=== PATIENT | male | born 1955 | race Hispanic/Latino ===

== ENCOUNTER 2020-05-07 20:21 | Inpatient (IN) | payer MEDICARE, OTHER ==
[~2020-05-07] VITALS: Ht 167.6 cm; Wt 100.8 kg
--- NOTE | 2020-05-07 20:32 | Emergency Department Note ---
History of Present Illnes History of Present Illness Chief Complaint: COVID PUI History of Present Illness This is a 64 year old male 8 days of cough fevers and myalgias . Seen at bedside in mild respiratory distress Arrival Mode: Car Onset (how long ago): day(s) (8) Radiation: Reports non-radiation Severity: moderate Onset quality: gradual Duration (how long): day(s) (8) Timing of current episode: constant Progression: worsening Chronicity: new Context: Reports recent illness Relieving factors: none Exacerbating factors: none Associated symptoms: Reports denies other symptoms Treatments prior to arrival: none Previous service: medications given, tests performed Past Medical/Family History Physician Review I have reviewed the patient's past medical and family history. Any updates have been documented here. Past Medical History Recent Fever: Yes Clinical Suspicion of Infectio: Yes New/Unexplained Change in Ment: No Past Medical History: None Past Surgical History: None Social History Smoking Cessation: Never Smoker Alcohol Use: None Any Illegal Drug Use: No Review of Systems Review of Systems Constitutional: Reports fever, Reports malaise, Reports weakness EENTM: Reports no symptoms Cardiovascular: Reports no symptoms Respiratory: Reports cough Gastrointestinal: Reports no symptoms Genitourinary: Reports no symptoms Musculoskeletal: Reports no symptoms Integumentary: Reports no symptoms Neurological: Reports no symptoms Psychological: Reports no symptoms Endocrine: Reports no symptoms Hematological/Lymphatic: Reports no symptoms Physical Exam Related Data Allergies: Coded Allergies: iodine (Verified Allergy, Severe, 05/07/20) Vital signs reviewed: Yes Physical Exam CONSTITUTIONAL Constitutional: Present obese, Present ill appearing HENT HENT: Present normocephalic, Present atraumatic, Present oropharynx clear/moist, Present nose normal HENT L/R: Present left ext ear normal, Present right ext ear normal EYES Eyes: Reports PERRL, Reports conjunctivae normal NECK Neck: Present ROM normal PULMONARY Pulmonary: Present effort normal, Present breath sounds normal CARDIOVASCULAR Cardiovascular: Present regular rhythm, Present heart sounds normal, Present capillary refill normal, Present normal rate GASTROINTESTINAL Abdominal: Present soft, Present nontender, Present bowel sounds normal GENITOURINARY Genitourinary: Present exam deferred SKIN Skin: Present warm, Present dry MUSCULOSKELETAL Musculoskeletal: Present ROM normal NEUROLOGICAL Neurological: Present alert, Present oriented x 3, Present no gross motor or sensory deficits PSYCHOLOGICAL Psychological: Present mood/affect normal, Present judgement normal Results Laboratory Lab results reviewed: Yes Laboratory comments Laboratory Tests Test 05/08/20 00:20 05/07/20 21:18 White Blood Count 6.14 x10e3/uL (4.8-10.8) Red Blood Count 4.32 x10e6/uL (4.3-5.7) Hemoglobin 12.6 g/dL (14.0-18.0) Hematocrit 36.6 % (38.2-49.6) Mean Corpuscular Volume 84.7 fL (81-99) Mean Corpuscular Hemoglobin 29.2 pg (28-32) Mean Corpuscular Hemoglobin Concent 34.4 g/dL (31-35) Red Cell Distribution Width 14.0 % (11.7-14.4) Platelet Count 139 x10e3/uL (140-360) Neutrophils (%) (Auto) 77.6 % (38.7-80.0) Lymphocytes (%) (Auto) 16.0 % (18.0-39.1) Monocytes (%) (Auto) 5.2 % (4.4-11.3) Eosinophils (%) (Auto) 0.0 % (0.0-6.0) Basophils (%) (Auto) 0.2 % (0.0-1.0) Neutrophils # (Auto) 4.8 (2.1-6.9) Lymphocytes # (Auto) 1.0 (1.0-3.2) Monocytes # (Auto) 0.3 (0.2-0.8) Eosinophils # (Auto) 0.0 (0.0-0.4) Basophils # (Auto) 0.0 (0.0-0.1) Absolute Immature Granulocyte (auto 0.06 x10e3/uL (0-0.1) Sodium Level 133 mmol/L (136-145) Potassium Level 3.8 mmol/L (3.5-5.1) Chloride Level 99 mmol/L (98-107) Carbon Dioxide Level 24 mmol/L (22-29) Anion Gap 13.8 mmol/L (8-16) Blood Urea Nitrogen 15 mg/dL (7-26) Creatinine 1.17 mg/dL (0.72-1.25) Estimat Glomerular Filtration Rate > 60 ML/MIN (60-) BUN/Creatinine Ratio 13 (6-25) Glucose Level 104 mg/dL (74-118) Calcium Level 8.5 mg/dL (8.4-10.2) Total Bilirubin 0.5 mg/dL (0.2-1.2) Aspartate Amino Transf (AST/SGOT) 56 IU/L (5-34) Alanine Aminotransferase (ALT/SGPT) 51 IU/L (0-55) Alkaline Phosphatase 60 IU/L (40-150) Total Protein 7.2 g/dL (6.5-8.1) Albumin 2.9 g/dL (3.5-5.0) Globulin 4.3 g/dL (2.3-3.5) Albumin/Globulin Ratio 0.7 (0.8-2.0) Imaging Imaging results reviewed: Yes Impressions [place] [address] Patient Name: RUBIA COE MR #: [id number] : 1955 Age/Sex: 64/M Req #: [id number] Adm Physician: DON ROLLE MD Ordered by: LAKISHA SULLIVAN DO Report #: [id number] Location: [facility] Room/Bed: [place] [address] Procedure: [id number] DX/CHEST SINGLE (PORTABLE) Exam Date: 05/07/20 Exam Time: 5 REPORT STATUS: Signed EXAMINATION: CHEST SINGLE (PORTABLE) INDICATION: ^ERMD ORDER COMPARISON: None FINDINGS: TUBES and LINES: None. LUNGS: Patchy and hazy right infrahilar opacity. Strandy opacities in the mid lower left lung. Shallow inspiration. PLEURA: No pleural effusion or pneumothorax. HEART AND MEDIASTINUM: The cardiomediastinal silhouette is unremarkable. BONES AND SOFT TISSUES: No acute osseous lesion. Soft tissues are unremarkable. UPPER ABDOMEN: No free air under the diaphragm. IMPRESSION: Shallow inspiration and portable technique limited exam. Patchy and hazy bibasilar opacities could represent atelectasis, although early pneumonia/viral pneumonia could be considered in the appropriate clinical context. A lateral view could be helpful to assess lung bases. Signed by: Aquilino Pereira MD on 05/07/2020 11:58 PM Dictated By: AQUILINO PEREIRA MD 57 Transcribed By: GILBERT on 05/07/202357 COPY TO: LAKISHA SULLIVAN DO~ Critical Care Time Total Critical Care Time (min): 31 Critcal care necessary due to: respiratory failure Critcal care time spent by me: evaluation patient response to tx, examination of patient, obtaining hx from patient/surrogate, order/perform tx or interventions, order/review laboratory studies, order/review radiographic studies, pulse oximetry, re-evaluation of patient condition Assessment & Plan Medical Decision Making MDM 64 yom presents with dyspea and hypoxia. Mild Respiratory distress upon arrival. Diff Dx : PE, PTX, CHF, Sepsis, COVID-19 URI infection, ACS, COPDD, ARDS, airway obstruction, Lung CA. Patient highly critical. Plan to admit for continuous pulse oximetry monitoring Reassessment Reassessment time: 22:01 Reassessment patient responding well to supplemental oxygen Assessment & Plan Final Impression: (1) Respiratory tract infection due to 2019-nCoV (2) Hypoxia Depart Disposition: ADMITTED Home Meds Reported Medications Cholecalciferol (Vitamin D3) (Vitamin D3) 50 Mcg Tab.chew, 1 TAB PO DAILY 05/08/20 Azithromycin (AZITHROMYCIN) 500 Mg Tablet, 250 MG PO DAILY 05/08/20 Ascorbic Acid (VITAMIN C) 1,000 Mg Tablet, 1 TAB PO DAILY 05/08/20 Zinc Sulfate (ZINC SULFATE) 220 Mg Tablet, 50 MG PO DAILY, #30 CAP 05/08/20 [Promethazine DM] No Conflict Check, 6.25-15 MG PO Q6H PRN for NAUSEA 05/08/20 Hydrochlorothiazide (HYDROCHLOROTHIAZIDE) 25 Mg Tablet, 12.5 MG PO DAILY, #30 TAB 05/08/20 Olmesartan Medoxomil (BENICAR) 20 Mg Tablet, 20 MG PO DAILY, #30 TAB 05/08/20 LAKISHA SULLIVAN DO May 07, 2020:32
[2020-05-07] MEDS ORDERED: ACETAMINOPHEN 325 MG TAB ONE (21:23)
[2020-05-07] MEDS ORDERED: ACETAMINOPHEN 325 MG TAB PO NR (22:00)
[2020-05-08] VITALS (9 sets, daily range): BP systolic 129–137; BP diastolic 68–79
--- NOTE | 2020-05-08 00:02 | Diagnostic Imaging Report ---
EXAMINATION: CHEST SINGLE (PORTABLE) INDICATION: ^ERMD ORDER COMPARISON: None FINDINGS: TUBES and LINES: None. LUNGS: Patchy and hazy right infrahilar opacity. Strandy opacities in the mid lower left lung. Shallow inspiration. PLEURA: No pleural effusion or pneumothorax. HEART AND MEDIASTINUM: The cardiomediastinal silhouette is unremarkable. BONES AND SOFT TISSUES: No acute osseous lesion. Soft tissues are unremarkable. UPPER ABDOMEN: No free air under the diaphragm. IMPRESSION: Shallow inspiration and portable technique limited exam. Patchy and hazy bibasilar opacities could represent atelectasis, although early pneumonia/viral pneumonia could be considered in the appropriate clinical context. A lateral view could be helpful to assess lung bases. Signed by: Shen Friend MD on 05/07/2020 11:58 PM
--- NOTE | 2020-05-08 00:15 | NUR ---
Patient arrived to the COVID unit and assigned to room 176 from ED via wheelchair as a new admit patient. Pt is alert and oriented x3. Per report received from Ashwin Auguste (ER nurse), pt presented classic signs of COVID 19 although swab test result still pending at this time. Pt on 3L NC and O2 sat 100%. Pt denies pain or any discomfort. Pt ambulatory in room prn. Pt v/s stable and pt is afebrile (T = 98.4 F). Call casper within reach. Will monitor closely .
[2020-05-08 00:49] LABS: BASOPHILS % 0.2 % (0.0-1.0); HEMATOCRIT 36.6 % (38.2-49.6); HEMOGLOBIN 12.6 g/dL (14.0-18.0); MEAN CORPUSCULAR HEMOGLOBIN 29.2 pg (28-32); MEAN CORPUSCULAR HGB CONC 34.4 g/dL (31-35); MEAN CORPUSCULAR VOLUME 84.7 fL (81-99); MONOCYTES # (AUTO) 0.3 (0.2-0.8); MONOCYTES % 5.2 % (4.4-11.3); NEUTROPHILS # (AUTO) 4.8 (2.1-6.9); NEUTROPHILS % 77.6 % (38.7-80.0); PLATELET COUNT 139 x10e3/uL (140-360); RED BLOOD COUNT 4.32 x10e6/uL (4.3-5.7)
[2020-05-08 01:00] LABS: ALANINE AMINOTRANSFERASE 51 IU/L (0-55); ALBUMIN 2.9 g/dL (3.5-5.0); ALBUMIN/GLOBULIN RATIO 0.7 (0.8-2.0); ALKALINE PHOSPHATASE 60 IU/L (40-150); ANION GAP 13.8 mmol/L (8-16); BLOOD UREA NITROGEN 15 mg/dL (7-26); BUN/CREATININE RATIO 13 (6-25); CALCIUM 8.5 mg/dL (8.4-10.2); CARBON DIOXIDE 24 mmol/L (22-29); CHLORIDE 99 mmol/L (98-107); CREATININE, SERUM 1.17 mg/dL (0.72-1.25); EST GLOMERULAR FILTRATION RATE > 60 ML/MIN (60-); GLUCOSE 104 mg/dL (74-118); POTASSIUM 3.8 mmol/L (3.5-5.1); SODIUM 133 mmol/L (136-145)
[2020-05-08] MEDS ORDERED: VITAMIN D350 MCG PO (01:48)
[2020-05-08] MEDS ORDERED: BENICAR20 MG PO (01:48)
[2020-05-08] MEDS ORDERED: VITAMIN C1000 MG PO (01:48)
[2020-05-08] MEDS ORDERED: PROMETHAZINE DM PO (01:48)
[2020-05-08] MEDS ORDERED: HYDROCHLOROTHIA25 MG PO (01:48)
[2020-05-08] MEDS ORDERED: ZINC SULFATE220 MG PO (01:48)
[2020-05-08] MEDS ORDERED: AZITHROMYCIN500 MG PO (01:48)
[2020-05-08 05:54] LABS: HEMATOCRIT 38.5 % (38.2-49.6); HEMOGLOBIN 12.9 g/dL (14.0-18.0); LYMPHOCYTES # (AUTO) 0.9 (1.0-3.2); LYMPHOCYTES % 16.9 % (18.0-39.1); MEAN CORPUSCULAR HEMOGLOBIN 28.9 pg (28-32); MEAN CORPUSCULAR HGB CONC 33.5 g/dL (31-35); MEAN CORPUSCULAR VOLUME 86.1 fL (81-99); MONOCYTES # (AUTO) 0.3 (0.2-0.8); MONOCYTES % 5.2 % (4.4-11.3); NEUTROPHILS # (AUTO) 3.9 (2.1-6.9); NEUTROPHILS % 76.9 % (38.7-80.0); PLATELET COUNT 145 x10e3/uL (140-360); RED BLOOD COUNT 4.47 x10e6/uL (4.3-5.7); RED CELL DISTRIBUTION WIDTH 14.4 % (11.7-14.4)
[2020-05-08 06:17] LABS: ALANINE AMINOTRANSFERASE 50 IU/L (0-55); ALBUMIN 2.9 g/dL (3.5-5.0); ALBUMIN/GLOBULIN RATIO 0.6 (0.8-2.0); ALKALINE PHOSPHATASE 59 IU/L (40-150); ANION GAP 14.1 mmol/L (8-16); BLOOD UREA NITROGEN 15 mg/dL (7-26); BUN/CREATININE RATIO 14 (6-25); CALCIUM 8.6 mg/dL (8.4-10.2); CARBON DIOXIDE 26 mmol/L (22-29); CHLORIDE 98 mmol/L (98-107); EST GLOMERULAR FILTRATION RATE > 60 ML/MIN (60-); GLUCOSE 98 mg/dL (74-118); POTASSIUM 4.1 mmol/L (3.5-5.1); SODIUM 134 mmol/L (136-145)
--- NOTE | 2020-05-08 06:29 | NUR ---
Spoke with answering service for Dr. Allen to notify of new consult order (re: COVID 19 infection).
--- NOTE | 2020-05-08 06:43 | NUR ---
Spoke with answering service for Dr. Garcia to notify of new consult order (re: Hypoxia, PUI).
[2020-05-08] MEDS ORDERED: DOCUSATE SODIUM 100 MG CAP PO PRN (07:00)
[2020-05-08] MEDS ORDERED: ONDANSETRON HCL INJ 2MG/ML 2ML 2 MG/ML VIAL IV PRN (07:00)
--- NOTE | 2020-05-08 07:04 | NUR ---
H&P cc: sob HP{I: 64yoM, PCP , developed sob and cough. No dizziness/POP/vision changes. PMH: obesit, HTN PSHx: unknown Allergies; see emr Fh/SH; no illicits; no cigs meds; see MAR ROS: no f/c/s/N/V/D/POP/cp/skin rash/confusion/vision changes v/s; revd PE tired appearing anicteric ns1s2 reduced bs soft nt nd no e/t skin dry flat affect labs/meds revd A/P: 64yoM Multifocal PNA- azithromycin/ceftriaxone/loratadine/ Acute resp failure- decadron; O2; check COVID 19 FEver- iv abx Transaminitis- f/u Obesity - check hab1c/lipids BMI 33.2- as above Prop; lovenox; pepcid dispo: Messi Gotti MD, PhD.
--- NOTE | 2020-05-08 08:18 | NUR ---
Patient up in bed eating breakfast, on O2 3L NC, on Tele, No s/s of any distress noted, call light in reach, DR Gotti had rounds
[2020-05-08 08:22] LABS: CHOL/HDL RATIO 6.5 (3.9-4.7)
[2020-05-08] MEDS ORDERED: SODIUM CHLORIDE 0.9% 250ML 250 ML ONE (08:38)
[2020-05-08] MEDS: ASCORBIC ACID 500 MG TAB PO SCH (09:05)
[2020-05-08] MEDS: CEFTRIAXONE SOD 1 GM/NS 50 ML 50 ML IV SCH (09:05)
[2020-05-08] MEDS: DEXAMETHASONE SOD PHOS INJ 4 MG/ML VIAL IV SCH (09:05)
[2020-05-08] MEDS: LORATADINE 10 MG TAB PO SCH (09:05)
[2020-05-08] MEDS: ZINC SULFATE 220 MG CAP PO SCH (09:05)
[2020-05-08] MEDS: HYDROCHLOROTHIAZIDE 25 MG TAB PO SCH (09:05)
[2020-05-08] MEDS: AZITHROMYCIN 500MG/NS 250 ML 250 ML IV SCH (09:05)
[2020-05-08] MEDS: BENZONATATE 100 MG CAP PO SCH ×3 (09:05→21:15)
[2020-05-08] MEDS: FAMOTIDINE 20 MG TAB PO SCH ×2 (09:05→17:09)
--- NOTE | 2020-05-08 11:53 | Consultation ---
DATE OF CONSULTATION: Pulmonary Consultation REASON FOR CONSULT: COVID pneumonia. HISTORY OF PRESENT ILLNESS: Mr. Raines is a 64-year-old male, who presented to the emergency room with complaints of shortness of breath. The patient reports that he was having mild cough and respiratory distress for 7 to 8 days associated with arthralgias and myalgias. He denies any chest pain, nausea, or vomiting. REVIEW OF SYSTEMS: GENERAL: Was having chills and fever. HEAD: Denies head trauma. ENT: Denies any earache. CVS: Denies any chest pain. The rest of the review of systems are negative except as in HPI. PAST MEDICAL HISTORY: Hypertension. PAST SURGICAL HISTORY: None. FAMILY AND SOCIAL HISTORY: Does not smoke. Does not drink. PHYSICAL EXAMINATION: VITAL SIGNS: Temperature 98.4, pulse of 78, blood pressure 129/79, respiratory rate of 18, and O2 saturation 100% on 3 L. HEENT: Head is atraumatic and normocephalic. NECK: Supple. CHEST: Clear to auscultation. Reduced air entry on the bases. HEART: S1 and S2 audible. ABDOMEN: Soft. EXTREMITIES: No pedal edema. NEUROLOGIC: Awake and alert. LABORATORY DATA: Reviewed. Chest x-ray is showing poor effort, but some infiltrate on the bases. ASSESSMENT/PLAN: COVID-19 pneumonia with shortness of breath, mild hypoxia. PLAN: Agree with Decadron, azithromycin, Rocephin, Tessalon Perles for cough. We will closely follow the patient. Thank you for this consult. MD HOMERO Paz/JASMINA /[id number]
--- NOTE | 2020-05-08 12:50 | NUR ---
Dr Allen had rounds, patient tolerated Lunch, no distress noted, he ambulated to restroom
[2020-05-08] MEDS ORDERED: ENOXAPARIN SOD INJ 40 MG/0.4 ML SYR SC SCH (17:00)
[2020-05-08] MEDS ORDERED: REMDESIVIR 200MG/NS 100ML 200 MG IV ONE (17:00)
--- NOTE | 2020-05-08 17:15 | NUR ---
Explained and Handout give regarding Remdesivir IV, Patient signed information paper
--- NOTE | 2020-05-08 17:19 | Consultation ---
DATE OF CONSULTATION: HISTORY OF PRESENT ILLNESS: Mr. Raines is here for shortness of breath and cough. The patient is a 64-year-old male, who comes in to the emergency room with shortness of breath and cough. He has been sick for 9 days. The patient has fever and chills and cough and shortness of breath, getting progressively worse with on oxygen. He is currently on 4 L. PAST MEDICAL HISTORY: Comprehensive past medical history is unremarkable. PAST SURGICAL HISTORY: Denies. ALLERGIES: NKA. SOCIAL HISTORY: No smoking, drug abuse, or alcohol abuse. PHYSICAL EXAMINATION: GENERAL: He is currently alert, oriented. VITALS: Stable, currently afebrile. HEENT: Not icteric. NECK: Supple. CHEST: Crackles bilateral. HEART: S1 and S2. ABDOMEN: Soft. IMPRESSION: COVID-19, respiratory failure, we will put him on remdesivir. Discussed with the patient this is still an investigational drug approved by them on emergency basis. He can stop it at any time. The fact sheet was discussed with the patient and he agreed with it. I am going to start him on 20 mg IV piggyback now and 1 mg IV piggyback for 5 days. Oxygen as needed. Dexamethasone for 10 days. We will plan. MD AQUILES Olmos/JASMINA /[id number]
--- NOTE | 2020-05-08 19:20 | NUR ---
Patient received lying in bed. AAO x 3. Patient had no complaints of pain. Respirations even and non-labored on 5 L NC. Fall precautions implemented. Patient instructed to call for assistance when needed. Call light within reach.
[2020-05-08] MEDS ORDERED: ZOLPIDEM TARTRATE 5 MG TAB PO PRN (21:00)
--- NOTE | 2020-05-08 21:15 | NUR ---
Patient's oxygen saturation recorded as 87% on 5 L NC. Respiratory therapist notified. Patient placed on 10L High Flow NC . Will continue to monitor.
[2020-05-09] VITALS (8 sets, daily range): BP systolic 119–150; BP diastolic 64–78
--- NOTE | 2020-05-09 06:15 | NUR ---
Patient's oxygen saturation dropped from 91% to 86%. Oxygen level increased to 15 on High Flow NC. Currently O2 Sat is 93%.
--- NOTE | 2020-05-09 06:25 | NUR ---
IM- progress note O/N see below ROS: no f/c/s/N/V/D/POP/cp/skin rash/confusion/vision changes v/s; revd PE tired appearing anicteric ns1s2 reduced bs soft nt nd no e/t skin dry flat affect labs/meds revd A/P: 64yoM Multifocal PNA- azithromycin/ceftriaxone/loratadine/ Acute resp failure- decadron; O2; check COVID 19 COVID19 infection and PNA FEver- iv abx Transaminitis- f/u Obesity - check hab1c/lipids BMI 33.2- as above Prop; lovenox; pepcid dispo: 8-6 Hba1c 5.3. COVID19 positive PNA; cont remdesivir and decadron and abx. Messi Gotti MD, PhD.
--- NOTE | 2020-05-09 07:00 | NUR ---
Patient resting comfortably. Shift report given to oncoming nurse.
[2020-05-09] MEDS: FAMOTIDINE 20 MG TAB PO SCH ×2 (08:58→16:22)
[2020-05-09] MEDS: LORATADINE 10 MG TAB PO SCH (08:59)
[2020-05-09] MEDS: ASCORBIC ACID 500 MG TAB PO SCH (08:59)
[2020-05-09] MEDS: CEFTRIAXONE SOD 1 GM/NS 50 ML 50 ML IV SCH (08:59)
[2020-05-09] MEDS: BENZONATATE 100 MG CAP PO SCH ×3 (08:59→20:43)
[2020-05-09] MEDS: HYDROCHLOROTHIAZIDE 25 MG TAB PO SCH (08:59)
[2020-05-09] MEDS: ZINC SULFATE 220 MG CAP PO SCH (08:59)
[2020-05-09] MEDS: DEXAMETHASONE SOD PHOS INJ 4 MG/ML VIAL IV SCH (08:59)
[2020-05-09] MEDS: AZITHROMYCIN 500MG/NS 250 ML 250 ML IV SCH (09:41)
--- NOTE | 2020-05-09 12:16 | NUR ---
Patient up in bed, on O2 10L High Flow with O2 Sat @ 94%, No distress noted this time, DR Garcia had rounds
[2020-05-09] MEDS: ACETAMINOPHEN 325 MG TAB PO PRN (12:22)
--- NOTE | 2020-05-09 12:48 | Progress Note ---
DATE: SUBJECTIVE: The patient is now requiring 10 L of oxygen, saturating 90%. He is on azithromycin and Rocephin. Chest x-ray shows infiltrates. The patient is on Lovenox 40 mg subcutaneous daily and remdesivir has been started. Hopefully, he will improve. PHYSICAL EXAMINATION: VITAL SIGNS: Temperature 97.8, pulse of 62, and blood pressure 122/65. CHEST: Clear to auscultation bilaterally. HEART: S1 and S2 audible. ABDOMEN: Soft. LABORATORY DATA: Reviewed. Chemistry reviewed. ASSESSMENT/PLAN: Mr. Raines has a COVID-19 pneumonia with respiratory failure. Continue oxygen as tolerated. Continue the patient on Decadron, azithromycin, and Rocephin. Currently on Lovenox 40 mg subcutaneous daily. I will check D-dimer. We may need to go up on the Lovenox dose. We will repeat chest x-ray. MD HOMERO Paz/JASMINA /[id number]
[2020-05-09] MEDS: REMDESIVIR 100MG/NS 100ML 100 MG IV SCH (14:05)
[2020-05-09] MEDS: ENOXAPARIN SOD INJ 40 MG/0.4 ML SYR SC SCH ×2 (16:21→20:43)
--- NOTE | 2020-05-09 16:30 | Progress Note ---
DATE: SUBJECTIVE: Mr. Raines is feeling worse today. He became hypoxemic. He is currently on Rocephin, azithromycin, dexamethasone, Lovenox as well as remdesivir day #2 out of 5. The patient became hypoxemic on 10 L. PHYSICAL EXAMINATION: HEENT: Normocephalic. CHEST: Crackles. HEART: S1, S2. ABDOMEN: Soft. Bowel sounds present. EXTREMITIES: No edema. SKIN: No rash. IMPRESSION AND PLAN: COVID-19, respiratory failure. Continue as ordered. We will increase his Lovenox to q.12 hours. Continue supportive care, oxygen as needed, vitamin C and vitamin D and zinc supplement. Discussed with medical team. MD AQUILES Olmos/MODL /[id number]
--- NOTE | 2020-05-09 19:30 | NUR ---
Patient received lying in bed. No acute distress noted. Respirations even and non-labored. Patient's oxygen saturation recorded as 90% on 12L High Flow NC. Fall precautions implemented. Call light within reach.
--- NOTE | 2020-05-09 21:30 | NUR ---
Patient's oxygen saturation recorded as 88% on 12L High Flow NC. Increased to 15L. O2 Sat recorded as 91%. Will continue to monitor.
[2020-05-10] VITALS (11 sets, daily range): BP systolic 119–144; BP diastolic 62–78
--- NOTE | 2020-05-10 01:55 | NUR ---
Patient's oxygen saturation recorded as 87% on High Flow NC. Non-rebreather mask placed on patient at 15 L; O2 Sat recorded as 93%. Will continue to monitor.
--- NOTE | 2020-05-10 06:24 | NUR ---
IM- progress note O/N see below ROS: no f/c/s/N/V/D/POP/cp/skin rash/confusion/vision changes v/s; revd PE tired appearing anicteric ns1s2 reduced bs soft nt nd no e/t skin dry flat affect labs/meds revd A/P: 64yoM Multifocal PNA- azithromycin/ceftriaxone/loratadine/ Acute resp failure- decadron; O2; check COVID 19 COVID19 infection and PNA FEver- iv abx Transaminitis- f/u Obesity - check hab1c/lipids BMI 33.2- as above Prop; lovenox; pepcid dispo: 8-6 Hba1c 5.3. COVID19 positive PNA; cont remdesivir and decadron and abx. 8-7 cont supportive care; Increased O2 needs; on NRBM; called , left voicemail. Messi Gotti MD, PhD.
--- NOTE | 2020-05-10 06:58 | NUR ---
Shift report given to oncoming nurse.
[2020-05-10] MEDS: CEFTRIAXONE SOD 1 GM/NS 50 ML 50 ML IV SCH (09:04)
[2020-05-10] MEDS: ASCORBIC ACID 500 MG TAB PO SCH (09:04)
[2020-05-10] MEDS: FAMOTIDINE 20 MG TAB PO SCH ×2 (09:04→17:18)
[2020-05-10] MEDS: ZINC SULFATE 220 MG CAP PO SCH (09:04)
[2020-05-10] MEDS: ENOXAPARIN SOD INJ 40 MG/0.4 ML SYR SC SCH ×2 (09:04→21:26)
[2020-05-10] MEDS: HYDROCHLOROTHIAZIDE 25 MG TAB PO SCH (09:04)
[2020-05-10] MEDS: DEXAMETHASONE SOD PHOS INJ 4 MG/ML VIAL IV SCH (09:04)
[2020-05-10] MEDS: BENZONATATE 100 MG CAP PO SCH ×3 (09:04→21:26)
[2020-05-10] MEDS: LORATADINE 10 MG TAB PO SCH (09:04)
--- NOTE | 2020-05-10 09:30 | NUR ---
respiratory called to bedside for assessment. patient o2 88% on 15L hiflow and 15L nonrebreather. recommended patient lay in prone position. pt assisted to right side. saturation up to 94%. wctm
[2020-05-10] MEDS: AZITHROMYCIN 500MG/NS 250 ML 250 ML IV SCH (09:54)
--- NOTE | 2020-05-10 10:44 | NUR ---
pulm recommending AirVo for patient. will notify respiratory.
--- NOTE | 2020-05-10 10:59 | Progress Note ---
DATE: SUBJECTIVE: The patient's oxygen requirement is going up when he is progressively getting worse. His D-dimer has been 0.88, which was high. Lovenox dose was increased. He is on Decadron IV antibiotics and remdesivir. REVIEW OF SYSTEMS: GENERAL: Denies any fever or chills. HEAD: Denies any head trauma. ENT: Denies any earache. CHEST: No chest pain, shortness of breath. GI: Denies any nausea or vomiting. The rest of the review of systems are negative except as in HPI. LABORATORY DATA: Reviewed. ASSESSMENT/PLAN: Mr. Raines is a 64-year-old male with COVID-19 pneumonia, progressively getting worse with the oxygen requirement. I will start the patient on high-flow nasal cannula and closely observe. Respiratory status is precarious. MD HOMERO Paz/JASMINA /[id number]
--- NOTE | 2020-05-10 11:00 | NUR ---
PATIENT PLACED ON AIRVO. 02 SATURATION 95%.
--- NOTE | 2020-05-10 13:13 | NUR ---
UPON ASSESSMENT, PATIENT LOOKS UNCOMFORTABLE. STATES HE IS NOT ABLE TO TAKE DEEP BREATHS. O2- 88%, SWITCHED BACK TO HIGH FLOW NASAL CANNULA AND NONREBREATHER. EXPLAINED AGAIN TO TURN OVER ONTO BELLY OR SIDE WHICH HE DID. SATURATION TO 95%.
[2020-05-10] MEDS: REMDESIVIR 100MG/NS 100ML 100 MG IV SCH (14:15)
--- NOTE | 2020-05-10 16:24 | NUR ---
patient o2 92% on high flow and nonrebreather. dr. cade discussed with dr. grullon and want to transfer patient to ICU. orders entered. waiting for bed assignment at this time.
--- NOTE | 2020-05-10 18:20 | Progress Note ---
DATE: SUBJECTIVE: Johnnie Raines is short of breath. His oxygenation saturation maintained, but he is on higher oxygen demand. He has no complaints. PHYSICAL EXAMINATION: GENERAL: He is currently alert. VITALS: Stable, currently afebrile. HEENT: He is not icteric. NECK: Supple. CHEST: Crackles bilaterally. HEART: S1 and S2. ABDOMEN: Soft. EXTREMITIES: No edema. IMPRESSION: Respiratory failure, COVID-19. I am going to move this patient to ICU. Continue with antibiotic as ordered. Finish his remdesivir and Lovenox as ordered. We will follow. MD AQUILES Olmos/JASMINA /[id number]
[2020-05-11] VITALS (24 sets, daily range): BP systolic 82–158; BP diastolic 61–93
[2020-05-11] MEDS: FAMOTIDINE 20 MG TAB PO SCH ×2 (07:33→16:36)
[2020-05-11] MEDS: CEFTRIAXONE SOD 1 GM/NS 50 ML 50 ML IV SCH (08:17)
[2020-05-11] MEDS: BENZONATATE 100 MG CAP PO SCH ×3 (08:26→21:12)
[2020-05-11] MEDS: DEXAMETHASONE SOD PHOS INJ 4 MG/ML VIAL IV SCH (08:26)
[2020-05-11] MEDS: ASCORBIC ACID 500 MG TAB PO SCH (08:26)
[2020-05-11] MEDS: ZINC SULFATE 220 MG CAP PO SCH (08:26)
[2020-05-11] MEDS: LORATADINE 10 MG TAB PO SCH (08:27)
[2020-05-11] MEDS: HYDROCHLOROTHIAZIDE 25 MG TAB PO SCH (08:27)
[2020-05-11] MEDS: ENOXAPARIN SOD INJ 40 MG/0.4 ML SYR SC SCH ×2 (08:27→21:12)
[2020-05-11] MEDS: AZITHROMYCIN 500MG/NS 250 ML 250 ML IV SCH (08:49)
--- NOTE | 2020-05-11 14:23 | NUR ---
IM- progress note O/N see below ROS: no f/c/s/N/V/D/POP/cp/skin rash/confusion/vision changes v/s; revd PE tired appearing anicteric ns1s2 reduced bs soft nt nd no e/t skin dry flat affect labs/meds revd A/P: 64yoM Multifocal PNA- azithromycin/ceftriaxone/loratadine/ Acute resp failure- decadron; O2; check COVID 19 COVID19 infection and PNA FEver- iv abx Transaminitis- f/u Obesity - check hab1c/lipids BMI 33.2- as above Prop; lovenox; pepcid dispo: 8-6 Hba1c 5.3. COVID19 positive PNA; cont remdesivir and decadron and abx. 8-7 cont supportive care; Increased O2 needs; on NRBM; called , left voicemail. 8-8 cont supportive care; escalate as needed; remains on O2 support; not intubated; Called next of kin- left message again. Messi Gotti MD, PhD.
[2020-05-11] MEDS: REMDESIVIR 100MG/NS 100ML 100 MG IV SCH (15:29)
--- NOTE | 2020-05-11 16:25 | NUR ---
this infections is per his note The patient is intensive. Events noted chart reviewed Remains short of breath remains Johnnie Raines is short of breath. His oxygenation saturation maintained, but he is on higher oxygen demand. He has no complaints. PHYSICAL EXAMINATION: GENERAL: He is currently alert. On oxygen VITALS: Stable, currently afebrile. both are stable otherwise HEENT: He is not icteric. normocephalic NECK: Supple. no JVD CHEST: Crackles bilaterally. HEART: S1 and S2. ABDOMEN: Soft. also present extremities no edema EXTREMITIES: No edema. IMPRESSION: Respiratory failure, COVID-19. patient seems to be getting better discuss medical team Continue supportive care Continue anticoagulation First 10 days of Decadron I am going to move this patient to ICU. Continue with antibiotic as ordered. Finish his remdesivir and Lovenox as ordered. We will follow.
--- NOTE | 2020-05-11 20:46 | Progress Note ---
DATE: SUBJECTIVE: The patient has improved, still requiring high-flow nasal cannula along with nonrebreather. The patient is on remdesivir. PHYSICAL EXAMINATION: VITAL SIGNS: Temperature 97.7, pulse of 60, blood pressure 149/72. CHEST: Clear to auscultation. No wheezing. HEART: S1 and S2 audible. ABDOMEN: Soft. NEUROLOGIC: Awake and alert. LABORATORY DATA: Reviewed. ASSESSMENT AND PLAN: A 64-year-old male with coronavirus disease 2019 pneumonia and respiratory failure. The patient has improved, however, still requiring the nonrebreather and high-flow oxygen. Continue supportive care. MD HOMERO Paz/MODL /[id number]
[2020-05-12] VITALS (25 sets, daily range): BP systolic 119–164; BP diastolic 61–90
[2020-05-12 06:24] LABS: BASOPHILS % 0.1 % (0.0-1.0); HEMATOCRIT 38.6 % (38.2-49.6); HEMOGLOBIN 12.8 g/dL (14.0-18.0); LYMPHOCYTES # (AUTO) 0.8 (1.0-3.2); LYMPHOCYTES % 7.2 % (18.0-39.1); MEAN CORPUSCULAR HGB CONC 33.2 g/dL (31-35); MEAN CORPUSCULAR VOLUME 90.4 fL (81-99); MONOCYTES # (AUTO) 0.4 (0.2-0.8); NEUTROPHILS # (AUTO) 9.6 (2.1-6.9); NEUTROPHILS % 87.6 % (38.7-80.0); PLATELET COUNT 250 x10e3/uL (140-360); RED BLOOD COUNT 4.27 x10e6/uL (4.3-5.7); RED CELL DISTRIBUTION WIDTH 14.3 % (11.7-14.4)
[2020-05-12 06:42] LABS: ALANINE AMINOTRANSFERASE 46 IU/L (0-55); ALBUMIN 2.7 g/dL (3.5-5.0); ALBUMIN/GLOBULIN RATIO 0.7 (0.8-2.0); ALKALINE PHOSPHATASE 63 IU/L (40-150); ANION GAP 11.2 mmol/L (8-16); BLOOD UREA NITROGEN 33 mg/dL (7-26); BUN/CREATININE RATIO 32 (6-25); CALCIUM 8.6 mg/dL (8.4-10.2); CARBON DIOXIDE 28 mmol/L (22-29); CHLORIDE 104 mmol/L (98-107); CREATININE, SERUM 1.02 mg/dL (0.72-1.25); EST GLOMERULAR FILTRATION RATE > 60 ML/MIN (60-); GLUCOSE 99 mg/dL (74-118); POTASSIUM 4.2 mmol/L (3.5-5.1); SODIUM 139 mmol/L (136-145)
[2020-05-12] MEDS: ASCORBIC ACID 500 MG TAB PO SCH (08:29)
[2020-05-12] MEDS: ENOXAPARIN SOD INJ 40 MG/0.4 ML SYR SC SCH ×2 (08:29→20:41)
[2020-05-12] MEDS: ZINC SULFATE 220 MG CAP PO SCH (08:29)
[2020-05-12] MEDS: CEFTRIAXONE SOD 1 GM/NS 50 ML 50 ML IV SCH (08:29)
[2020-05-12] MEDS: HYDROCHLOROTHIAZIDE 25 MG TAB PO SCH (08:30)
[2020-05-12] MEDS: LORATADINE 10 MG TAB PO SCH (08:30)
[2020-05-12] MEDS: BENZONATATE 100 MG CAP PO SCH ×3 (08:30→20:41)
[2020-05-12] MEDS: FAMOTIDINE 20 MG TAB PO SCH ×2 (08:30→16:49)
[2020-05-12] MEDS: DEXAMETHASONE SOD PHOS INJ 4 MG/ML VIAL IV SCH (08:30)
[2020-05-12] MEDS: AZITHROMYCIN 500MG/NS 250 ML 250 ML IV SCH (09:10)
--- NOTE | 2020-05-12 09:27 | NUR ---
IM- progress note O/N see below ROS: no f/c/s/N/V/D/POP/cp/skin rash/confusion/vision changes v/s; revd PE tired appearing anicteric ns1s2 reduced bs soft nt nd no e/t skin dry flat affect labs/meds revd A/P: 64yoM Multifocal PNA- azithromycin/ceftriaxone/loratadine/ Acute resp failure- decadron; O2; check COVID 19 COVID19 infection and PNA Acute diarrhea- check C-diff and start flagyl FEver- iv abx Transaminitis- f/u Obesity - check hab1c/lipids BMI 33.2- as above Prop; lovenox; pepcid dispo: 8-6 Hba1c 5.3. COVID19 positive PNA; cont remdesivir and decadron and abx. 8-7 cont supportive care; Increased O2 needs; on NRBM; called , left voicemail. 8-8 cont supportive care; escalate as needed; remains on O2 support; not intubated; Called next of kin- left message again. 8-9 cont care; D/w son at [phone] ; remains stable on NRBM; Diarrhea- check C-diff; start flagyl; Messi Gotti MD, PhD.
--- NOTE | 2020-05-12 10:14 | NUR ---
Infectious disease progress note Patient Ms. intensive care unit on high oxygen Patient short of breath fatigue but otherwise doing okay review of system is unremarkable Medications reviewed the videos reviewed chart reviewed patient has diarrhea today laboratory reviewed Remains short of breath remains THE INTENSIVE CARE UNIT Johnnie Raines is short of breath. His oxygenation saturation maintained, but he is on higher oxygen demand. He has no complaints. PHYSICAL EXAMINATION: GENERAL: He is currently alert. On oxygen VITALS: Stable, currently afebrile. both are stable otherwise HEENT: He is not icteric. normocephalic NECK: Supple. no JVD CHEST: Crackles bilaterally. HEART: S1 and S2. ABDOMEN: Soft. also present extremities no edema EXTREMITIES: No edema. IMPRESSION: Respiratory failure, COVID-19. Diarrhea I thinks due to antibiotic was discontinued to think this is day #5 he also finished his redisivir patient seems to be getting better discuss medical team continue as ordered
[2020-05-12] MEDS ORDERED: METRONIDAZOLE 500MG/NS 100ML 100 ML IV SCH (13:00)
[2020-05-12] MEDS: REMDESIVIR 100MG/NS 100ML 100 MG IV SCH (14:08)
[2020-05-12] MEDS ORDERED: CHOLESTYRAMINE 4 GM PACKET PO PRN (16:30)
--- NOTE | 2020-05-12 17:00 | NUR ---
Patient having multiple loose stools. Dr. Gotti informed and ordered c diff culture and flagyl. Dr. Allen aware of diarrhea and d/c all antibiotics and prn pepto bismol and questran ordered.
[2020-05-12] MEDS: BISMUTH SUBSALICYLATE 262 MG/15 ML 8OZ BTL PO PRN (17:13)
[2020-05-13] VITALS (24 sets, daily range): BP systolic 111–158; BP diastolic 59–91
[2020-05-13] MEDS: GUAIFENESIN/DEXTROMETHORPHAN LIQD 5 ML UDC NG PRN ×2 (04:44→23:15)
--- NOTE | 2020-05-13 06:59 | NUR ---
IM- progress note O/N see below ROS: no f/c/s/N/V/D/POP/cp/skin rash/confusion/vision changes v/s; revd PE tired appearing anicteric ns1s2 reduced bs soft nt nd no e/t skin dry flat affect labs/meds revd A/P: 64yoM Multifocal PNA- azithromycin/ceftriaxone/loratadine/ Acute resp failure- decadron; O2; check COVID 19 COVID19 infection and PNA Acute diarrhea- check C-diff and start flagyl FEver- iv abx Transaminitis- f/u Obesity - check hab1c/lipids BMI 33.2- as above Prop; lovenox; pepcid dispo: 8-6 Hba1c 5.3. COVID19 positive PNA; cont remdesivir and decadron and abx. 8-7 cont supportive care; Increased O2 needs; on NRBM; called , left voicemail. 8-8 cont supportive care; escalate as needed; remains on O2 support; not intubated; Called next of kin- left message again. 8-9 cont care; D/w son at [phone] ; remains stable on NRBM; Diarrhea- check C-diff; start flagyl; 8-10 supportive care; lung infiltrate worse? cont supportive care with NRBM. Messi Gotti MD, PhD.
[2020-05-13] MEDS: ENOXAPARIN SOD INJ 40 MG/0.4 ML SYR SC SCH ×2 (08:27→21:17)
[2020-05-13] MEDS: LORATADINE 10 MG TAB PO SCH (08:27)
[2020-05-13] MEDS: ZINC SULFATE 220 MG CAP PO SCH (08:27)
[2020-05-13] MEDS: BENZONATATE 100 MG CAP PO SCH ×3 (08:27→21:16)
[2020-05-13] MEDS: DEXAMETHASONE SOD PHOS INJ 4 MG/ML VIAL IV SCH (08:27)
[2020-05-13] MEDS: HYDROCHLOROTHIAZIDE 25 MG TAB PO SCH (08:27)
[2020-05-13] MEDS: ASCORBIC ACID 500 MG TAB PO SCH (08:27)
[2020-05-13] MEDS: FAMOTIDINE 20 MG TAB PO SCH ×2 (08:27→15:51)
--- NOTE | 2020-05-13 08:58 | Diagnostic Imaging Report ---
EXAMINATION: CHEST SINGLE (PORTABLE) INDICATION: Viral pneumonia COMPARISON: Chest radiograph 05/07/2020 FINDINGS: LINES/TUBES:EKG leads overlie the chest. LUNGS:The lungs are moderately inflated. Worsening bilateral multifocal airspace opacities right greater than left. PLEURA:No pleural effusion or pneumothorax. MEDIASTINUM:The cardiomediastinal silhouette appears unchanged in size and shape. BONES/SOFT TISSUES:No acute osseous injury. ABDOMEN:No free air under the diaphragm. IMPRESSION: Worsening right greater than left multifocal airspace opacities consistent with known history of viral pneumonia. Signed by: Jericho Martinez MD on 05/13/2020 8:54 AM
--- NOTE | 2020-05-13 12:24 | NUR ---
infectious disease grades note Patient status post antibiotic Still shortness of breath diarrhea is better still low fever Physical examination currently alert oriented his vitals stable currently HEENT did not protect neck supple chest crackles heart S1-S2 abdomen soft both are present extremities no edema Covid 19 Respirated failure Status post treatment with antibiotic Continue with supportive care for now No fever today we will reassess
--- NOTE | 2020-05-13 17:40 | NUR ---
Nutrition Screen Note RD Recommendation for Physician: -Continue cardiac diet Plan of Care: RD following, monitoring for tolerance and adequacy Nutrition reason for involvement: Length of stay Primary Diagnose(s): COVID19, pneumonia, and hypoxia PMH: HTN Ht: 66 in Wt:205 lb BMI: 33.1 kg/m2 IBW:[address] Assessment: (05/13/20) Chart reviewed. Labs and meds reviewed. Pt is a 64 year old male admitted with COVID19, pneumonia, and hypoxia. Unable to enter room due to isolation precautions. No reports of weight loss per chart. It is recorded that pt consumed 75% of meals yesterday and 25-50% of breakfast and lunch today. If pt consumes <50% of meals, offer Ensure compact. Will continue to monitor. Current Diet: cardiac Malnutrition Evaluation (05/13/20) Unable to assess due to isolation precautions Diet Education Needs Assessment: RD is available for diet education as needed Nutrition Care Level: low Signed: Gali Matias, RD, LD
--- NOTE | 2020-05-13 17:54 | NUR ---
Patient proned at this time per MD order, tolerating well, Sats noted to be 94%
--- NOTE | 2020-05-13 18:20 | NUR ---
Patient laying on right side at this time, states, "Laying on my stomach hurts my lower back." Sats noted to be 94%
[2020-05-13] MEDS ORDERED: ZOLPIDEM TARTRATE 5 MG TAB PO SCH (21:00)
[2020-05-14] VITALS (25 sets, daily range): BP systolic 106–144; BP diastolic 64–89
[2020-05-14 05:02] LABS: BASOPHILS % 0.2 % (0.0-1.0); EOSINOPHILS % 0.2 % (0.0-6.0); HEMATOCRIT 46.6 % (38.2-49.6); HEMOGLOBIN 15.4 g/dL (14.0-18.0); LYMPHOCYTES # (AUTO) 0.6 (1.0-3.2); LYMPHOCYTES % 5.4 % (18.0-39.1); MEAN CORPUSCULAR HEMOGLOBIN 28.9 pg (28-32); MEAN CORPUSCULAR VOLUME 87.6 fL (81-99); MONOCYTES # (AUTO) 0.3 (0.2-0.8); MONOCYTES % 2.9 % (4.4-11.3); NEUTROPHILS # (AUTO) 10.3 (2.1-6.9); NEUTROPHILS % 89.6 % (38.7-80.0); PLATELET COUNT 269 x10e3/uL (140-360); RED BLOOD COUNT 5.32 x10e6/uL (4.3-5.7)
[2020-05-14 05:19] LABS: ALANINE AMINOTRANSFERASE 34 IU/L (0-55); ALBUMIN 2.9 g/dL (3.5-5.0); ALBUMIN/GLOBULIN RATIO 0.6 (0.8-2.0); ALKALINE PHOSPHATASE 73 IU/L (40-150); ANION GAP 14.3 mmol/L (8-16); BLOOD UREA NITROGEN 30 mg/dL (7-26); BUN/CREATININE RATIO 26 (6-25); CALCIUM 9.4 mg/dL (8.4-10.2); CARBON DIOXIDE 25 mmol/L (22-29); CHLORIDE 101 mmol/L (98-107); CREATININE, SERUM 1.15 mg/dL (0.72-1.25); EST GLOMERULAR FILTRATION RATE > 60 ML/MIN (60-); GLUCOSE 97 mg/dL (74-118); POTASSIUM 4.3 mmol/L (3.5-5.1); SODIUM 136 mmol/L (136-145)
--- NOTE | 2020-05-14 06:42 | NUR ---
IM- progress note O/N see below ROS: no f/c/s/N/V/D/POP/cp/skin rash/confusion/vision changes v/s; revd PE tired appearing anicteric ns1s2 reduced bs soft nt nd no e/t skin dry flat affect labs/meds revd A/P: 64yoM Multifocal PNA- azithromycin/ceftriaxone/loratadine/ Acute resp failure- decadron; O2; check COVID 19 COVID19 infection and PNA Acute diarrhea- check C-diff and start flagyl FEver- iv abx Transaminitis- f/u Obesity - check hab1c/lipids BMI 33.2- as above Prop; lovenox; pepcid dispo: 8-6 Hba1c 5.3. COVID19 positive PNA; cont remdesivir and decadron and abx. 8-7 cont supportive care; Increased O2 needs; on NRBM; called , left voicemail. 8-8 cont supportive care; escalate as needed; remains on O2 support; not intubated; Called next of kin- left message again. 8-9 cont care; D/w son at [phone] ; remains stable on NRBM; Diarrhea- check C-diff; start flagyl; 8-10 supportive care; lung infiltrate worse? cont supportive care with NRBM. 8-11 continue decadron and NRBM. Messi Gotti MD, PhD.
[2020-05-14] MEDS: ASCORBIC ACID 500 MG TAB PO SCH (08:35)
[2020-05-14] MEDS: ENOXAPARIN SOD INJ 40 MG/0.4 ML SYR SC SCH (08:35)
[2020-05-14] MEDS: BENZONATATE 100 MG CAP PO SCH ×3 (08:35→20:35)
[2020-05-14] MEDS: HYDROCHLOROTHIAZIDE 25 MG TAB PO SCH (08:35)
[2020-05-14] MEDS: FAMOTIDINE 20 MG TAB PO SCH ×2 (08:35→15:34)
[2020-05-14] MEDS: ZINC SULFATE 220 MG CAP PO SCH (08:35)
[2020-05-14] MEDS: LORATADINE 10 MG TAB PO SCH (08:35)
[2020-05-14] MEDS: DEXAMETHASONE SOD PHOS INJ 4 MG/ML VIAL IV SCH (08:35)
[2020-05-14] MEDS ORDERED: ENOXAPARIN SOD INJ 40 MG/0.4 ML SYR SC SCH (09:00)
--- NOTE | 2020-05-14 09:38 | Diagnostic Imaging Report ---
EXAMINATION: CHEST SINGLE (PORTABLE) INDICATION: Viral pneumonia COMPARISON: Chest radiograph of 05/13/2020 FINDINGS: LINES/TUBES:EKG leads overlie the chest. LUNGS:The lung volumes are low. Persistent bilateral multifocal airspace opacities. PLEURA:No pleural effusion or pneumothorax. MEDIASTINUM:The cardiomediastinal silhouette appears unchanged in size and shape. BONES/SOFT TISSUES:No acute osseous injury. ABDOMEN:No free air under the diaphragm. IMPRESSION: Low lung volumes and unchanged bilateral multifocal airspace opacities consistent with known viral pneumonia. Signed by: Jericho Martinez MD on 05/14/2020 9:35 AM
[2020-05-14] MEDS ORDERED: SODIUM CHLORIDE 0.9% 250ML 0 ML ONE (11:56)
--- NOTE | 2020-05-14 14:11 | NUR ---
infectious disease progress note this is an addendum for May 13 Patient was seen and examined chart reviewed patient seen and examined chart reviewed this is May patient remains in intensive care unit Physical examination patient currently alert her vitals stable remained hypoxemic HEENT normocephalic neck supple chest few crackles bilaterally heart S1-S2 abdomen soft was not present extremities no edema There we did review chart reviewed medication list reviewed covid 19 diabetes mellitus Respiratory failure continued plan of care is ordered
--- NOTE | 2020-05-14 14:12 | NUR ---
infectious disease progress note Patient seen and examined chart reviewed Is May 14, 2020 Patient remains in intensive care unit Physical examination fairly alert oriented but are stable Afebrile HEENT normocephalic not pale not icteric neck.supple no JVD chest crackles bilaterally heart or threats to abdomen soft about her present extremes of edema Respiratory failure Covert 19 Continue plan of care as ordered
[2020-05-14] MEDS: ZOLPIDEM TARTRATE 10 MG TAB PO SCH (20:34)
[2020-05-14] MEDS: ENOXAPARIN INJ 80 MG/0.8 ML SYR SC SCH (20:35)
[2020-05-15] VITALS (26 sets, daily range): BP systolic 99–133; BP diastolic 60–87
[2020-05-15] MEDS: ACETAMINOPHEN 325 MG TAB PO PRN (02:51)
[2020-05-15 04:59] LABS: BASOPHILS % 0.1 % (0.0-1.0); EOSINOPHILS # (AUTO) 0.1 (0.0-0.4); EOSINOPHILS % 0.7 % (0.0-6.0); HEMOGLOBIN 15.3 g/dL (14.0-18.0); LYMPHOCYTES # (AUTO) 0.7 (1.0-3.2); LYMPHOCYTES % 5.5 % (18.0-39.1); MEAN CORPUSCULAR HEMOGLOBIN 29.3 pg (28-32); MEAN CORPUSCULAR HGB CONC 32.6 g/dL (31-35); MEAN CORPUSCULAR VOLUME 89.9 fL (81-99); MONOCYTES # (AUTO) 0.4 (0.2-0.8); MONOCYTES % 3.6 % (4.4-11.3); NEUTROPHILS # (AUTO) 10.7 (2.1-6.9); NEUTROPHILS % 88.4 % (38.7-80.0); PLATELET COUNT 327 x10e3/uL (140-360); RED BLOOD COUNT 5.23 x10e6/uL (4.3-5.7); RED CELL DISTRIBUTION WIDTH 14.1 % (11.7-14.4)
[2020-05-15 05:23] LABS: ANION GAP 15.9 mmol/L (8-16); CALCIUM 9.7 mg/dL (8.4-10.2); CREATININE, SERUM 1.44 mg/dL (0.72-1.25); POTASSIUM 4.9 mmol/L (3.5-5.1)
[2020-05-15] MEDS: GUAIFENESIN/DEXTROMETHORPHAN LIQD 5 ML UDC NG PRN ×2 (06:41→21:00)
[2020-05-15] MEDS: BENZONATATE 100 MG CAP PO SCH ×3 (07:46→21:00)
[2020-05-15] MEDS: FAMOTIDINE 20 MG TAB PO SCH ×2 (07:46→15:25)
[2020-05-15] MEDS: LORATADINE 10 MG TAB PO SCH (07:46)
[2020-05-15] MEDS: HYDROCHLOROTHIAZIDE 25 MG TAB PO SCH (07:46)
[2020-05-15] MEDS: ASCORBIC ACID 500 MG TAB PO SCH (07:46)
[2020-05-15] MEDS: ZINC SULFATE 220 MG CAP PO SCH (07:46)
[2020-05-15] MEDS: DEXAMETHASONE SOD PHOS INJ 4 MG/ML VIAL IV SCH (07:46)
[2020-05-15] MEDS: ENOXAPARIN INJ 80 MG/0.8 ML SYR SC SCH ×2 (07:46→21:00)
--- NOTE | 2020-05-15 08:37 | NUR ---
IM- progress note O/N see below ROS: no f/c/s/N/V/D/POP/cp/skin rash/confusion/vision changes v/s; revd PE tired appearing anicteric ns1s2 reduced bs soft nt nd no e/t skin dry flat affect labs/meds revd A/P: 64yoM Multifocal PNA- azithromycin/ceftriaxone/loratadine/ Acute resp failure- decadron; O2; check COVID 19 COVID19 infection and PNA Acute diarrhea- check C-diff and start flagyl FEver- iv abx Transaminitis- f/u Obesity - check hab1c/lipids BMI 33.2- as above Prop; lovenox; pepcid dispo: 8-6 Hba1c 5.3. COVID19 positive PNA; cont remdesivir and decadron and abx. 8-7 cont supportive care; Increased O2 needs; on NRBM; called , left voicemail. 8-8 cont supportive care; escalate as needed; remains on O2 support; not intubated; Called next of kin- left message again. 8-9 cont care; D/w son at [phone] ; remains stable on NRBM; Diarrhea- check C-diff; start flagyl; 8-10 supportive care; lung infiltrate worse? cont supportive care with NRBM. 8-11 continue decadron and NRBM. 8-12 remains stable on NRBM; LUIS- recheck at 4pm; d/c HCTZ. Messi Gotti MD, PhD.
--- NOTE | 2020-05-15 08:43 | Diagnostic Imaging Report ---
EXAMINATION: CHEST SINGLE (PORTABLE) INDICATION: Viral pneumonia COMPARISON: Chest radiograph 08/23/2020 FINDINGS: LINES/TUBES:EKG leads overlie the chest. LUNGS:The lung volumes remain low. Unchanged bilateral multifocal airspace opacities right greater than left. PLEURA:No pleural effusion or pneumothorax. MEDIASTINUM:The cardiomediastinal silhouette appears unchanged in size and shape. BONES/SOFT TISSUES:No acute osseous injury. ABDOMEN:No free air under the diaphragm. IMPRESSION: No significant interval change. Signed by: Jericho Martinez MD on 05/15/2020 8:40 AM
--- NOTE | 2020-05-15 16:39 | Progress Note ---
DATE: SUBJECTIVE: Mr. Raines is doing about the same. Remains in intensive care unit. Slightly better. PHYSICAL EXAMINATION: GENERAL: He is currently alert. VITAL SIGNS: Stable, afebrile. HEENT: Not icteric. NECK: Supple. CHEST: Crackles. HEART: S1 and S2. ABDOMEN: Soft. IMPRESSION: COVID-19, history failure, doing better. Continue with supportive care. Oxygen as needed. To finish 10 days of dexamethasone. This is day #8. Status post antibiotic. Low-dose anticoagulation. MD AQUILES Olmos/MODL /[id number]
[2020-05-15] MEDS: ZOLPIDEM TARTRATE 10 MG TAB PO SCH (21:00)
[2020-05-15 21:35] LABS: ANION GAP 14.6 mmol/L (8-16); CREATININE, SERUM 1.22 mg/dL (0.72-1.25); POTASSIUM 4.6 mmol/L (3.5-5.1)
[2020-05-16] VITALS (26 sets, daily range): BP systolic 101–145; BP diastolic 64–90
[2020-05-16] MEDS: GUAIFENESIN/DEXTROMETHORPHAN LIQD 5 ML UDC NG PRN ×3 (03:50→23:35)
[2020-05-16 04:18] LABS: BASOPHILS % 0.2 % (0.0-1.0); EOSINOPHILS % 0.2 % (0.0-6.0); HEMATOCRIT 45.8 % (38.2-49.6); HEMOGLOBIN 14.9 g/dL (14.0-18.0); LYMPHOCYTES # (AUTO) 0.8 (1.0-3.2); LYMPHOCYTES % 5.7 % (18.0-39.1); MEAN CORPUSCULAR HEMOGLOBIN 28.4 pg (28-32); MEAN CORPUSCULAR HGB CONC 32.5 g/dL (31-35); MEAN CORPUSCULAR VOLUME 87.4 fL (81-99); MONOCYTES # (AUTO) 0.6 (0.2-0.8); MONOCYTES % 4.5 % (4.4-11.3); PLATELET COUNT 332 x10e3/uL (140-360); RED BLOOD COUNT 5.24 x10e6/uL (4.3-5.7); RED CELL DISTRIBUTION WIDTH 14.3 % (11.7-14.4)
[2020-05-16 04:36] LABS: ALANINE AMINOTRANSFERASE 24 IU/L (0-55); ALBUMIN 2.6 g/dL (3.5-5.0); ALBUMIN/GLOBULIN RATIO 0.5 (0.8-2.0); ALKALINE PHOSPHATASE 74 IU/L (40-150); ANION GAP 14.4 mmol/L (8-16); BLOOD UREA NITROGEN 43 mg/dL (7-26); BUN/CREATININE RATIO 36 (6-25); CALCIUM 9.1 mg/dL (8.4-10.2); CARBON DIOXIDE 23 mmol/L (22-29); CHLORIDE 103 mmol/L (98-107); EST GLOMERULAR FILTRATION RATE > 60 ML/MIN (60-); GLUCOSE 106 mg/dL (74-118); POTASSIUM 4.4 mmol/L (3.5-5.1); SODIUM 136 mmol/L (136-145)
--- NOTE | 2020-05-16 06:35 | NUR ---
IM- progress note O/N see below ROS: no f/c/s/N/V/D/POP/cp/skin rash/confusion/vision changes v/s; revd PE tired appearing anicteric ns1s2 reduced bs soft nt nd no e/t skin dry flat affect labs/meds revd A/P: 64yoM Multifocal PNA- azithromycin/ceftriaxone/loratadine/ Acute resp failure- decadron; O2; check COVID 19 COVID19 infection and PNA Acute diarrhea- check C-diff and start flagyl FEver- iv abx Transaminitis- f/u Obesity - check hab1c/lipids BMI 33.2- as above Prop; lovenox; pepcid dispo: 8-6 Hba1c 5.3. COVID19 positive PNA; cont remdesivir and decadron and abx. 8-7 cont supportive care; Increased O2 needs; on NRBM; called , left voicemail. 8-8 cont supportive care; escalate as needed; remains on O2 support; not intubated; Called next of kin- left message again. 8-9 cont care; D/w son at [phone] ; remains stable on NRBM; Diarrhea- check C-diff; start flagyl; 8-10 supportive care; lung infiltrate worse? cont supportive care with NRBM. 8-11 continue decadron and NRBM. 8-12 remains stable on NRBM; LUIS- recheck at 4pm; d/c HCTZ. 8-13 renal fn improved and stable; cont resp support. remains on HiFLo Messi Gotti MD, PhD.
[2020-05-16] MEDS: LORATADINE 10 MG TAB PO SCH (07:35)
[2020-05-16] MEDS: BENZONATATE 100 MG CAP PO SCH ×3 (07:35→21:36)
[2020-05-16] MEDS: DEXAMETHASONE SOD PHOS INJ 4 MG/ML VIAL IV SCH (07:35)
[2020-05-16] MEDS: FAMOTIDINE 20 MG TAB PO SCH ×2 (07:35→15:50)
[2020-05-16] MEDS: ASCORBIC ACID 500 MG TAB PO SCH (07:36)
[2020-05-16] MEDS: ZINC SULFATE 220 MG CAP PO SCH (07:36)
[2020-05-16] MEDS: ENOXAPARIN INJ 80 MG/0.8 ML SYR SC SCH ×2 (07:36→21:36)
--- NOTE | 2020-05-16 12:00 | NUR ---
IM- progress note O/N see below ROS: no f/c/s/N/V/D/POP/cp/skin rash/confusion/vision changes v/s; revd PE tired appearing anicteric ns1s2 reduced bs soft nt nd no e/t skin dry flat affect labs/meds revd A/P: 64yoM Multifocal PNA- azithromycin/ceftriaxone/loratadine/ Acute resp failure- decadron; O2; check COVID 19 COVID19 infection and PNA Acute diarrhea- check C-diff and start flagyl FEver- iv abx Transaminitis- f/u Obesity - check hab1c/lipids BMI 33.2- as above Prop; lovenox; pepcid dispo: 8-6 Hba1c 5.3. COVID19 positive PNA; cont remdesivir and decadron and abx. 8-7 cont supportive care; Increased O2 needs; on NRBM; called , left voicemail. 8-8 cont supportive care; escalate as needed; remains on O2 support; not intubated; Called next of kin- left message again. 8-9 cont care; D/w son at [phone] ; remains stable on NRBM; Diarrhea- check C-diff; start flagyl; 8-10 supportive care; lung infiltrate worse? cont supportive care with NRBM. 8-11 continue decadron and NRBM. 8-12 remains stable on NRBM; LUIS- recheck at 4pm; d/c HCTZ. 8-13 renal fn improved and stable; cont resp support. remains on HiFLo; Called son- updated. Messi Gotti MD, PhD.
--- NOTE | 2020-05-16 12:38 | NUR ---
this is infectious disease progress note preoperative patient seen and examined shortly. Day #9 the patient remains in intensive care unit on high oxygen. She is weak with shortness of breath and cough otherwise review systems is nothing new. Physical examination patient is alert oriented vitals stable currently afebrile. HEENT normocephalic not pale or icteric neck supple chest crackles bilaterally heart S1-S2 no S3-S4 abdomen soft but are present extremities no edema. Skin no rash. John 19 preparative respirator failure Superimposed bacterial pneumonia. see orders
[2020-05-16] MEDS: ZOLPIDEM TARTRATE 10 MG TAB PO SCH (21:36)
[2020-05-17] VITALS (24 sets, daily range): BP systolic 103–145; BP diastolic 65–109
[2020-05-17 06:05] LABS: BASOPHILS % 0.2 % (0.0-1.0); EOSINOPHILS % 0.2 % (0.0-6.0); HEMATOCRIT 47.2 % (38.2-49.6); HEMOGLOBIN 15.3 g/dL (14.0-18.0); LYMPHOCYTES # (AUTO) 0.8 (1.0-3.2); LYMPHOCYTES % 6.5 % (18.0-39.1); MEAN CORPUSCULAR HGB CONC 32.4 g/dL (31-35); MEAN CORPUSCULAR VOLUME 89.6 fL (81-99); MONOCYTES # (AUTO) 0.6 (0.2-0.8); MONOCYTES % 4.7 % (4.4-11.3); NEUTROPHILS # (AUTO) 10.4 (2.1-6.9); NEUTROPHILS % 87.2 % (38.7-80.0); PLATELET COUNT 311 x10e3/uL (140-360); RED BLOOD COUNT 5.27 x10e6/uL (4.3-5.7); RED CELL DISTRIBUTION WIDTH 14.2 % (11.7-14.4)
[2020-05-17 06:22] LABS: ANION GAP 15.4 mmol/L (8-16); BLOOD UREA NITROGEN 42 mg/dL (7-26); BUN/CREATININE RATIO 39 (6-25); CALCIUM 9.2 mg/dL (8.4-10.2); CARBON DIOXIDE 20 mmol/L (22-29); CHLORIDE 104 mmol/L (98-107); CREATININE, SERUM 1.08 mg/dL (0.72-1.25); EST GLOMERULAR FILTRATION RATE > 60 ML/MIN (60-); GLUCOSE 97 mg/dL (74-118); POTASSIUM 4.4 mmol/L (3.5-5.1); SODIUM 135 mmol/L (136-145)
--- NOTE | 2020-05-17 06:37 | NUR ---
IM- progress note O/N see below ROS: no f/c/s/N/V/D/POP/cp/skin rash/confusion/vision changes v/s; revd PE tired appearing anicteric ns1s2 reduced bs soft nt nd no e/t skin dry flat affect labs/meds revd A/P: 64yoM Multifocal PNA- azithromycin/ceftriaxone/loratadine/ Acute resp failure- decadron; O2; check COVID 19 COVID19 infection and PNA Acute diarrhea- check C-diff and start flagyl FEver- iv abx Transaminitis- f/u Obesity - check hab1c/lipids BMI 33.2- as above Prop; lovenox; pepcid dispo: 8-6 Hba1c 5.3. COVID19 positive PNA; cont remdesivir and decadron and abx. 8-7 cont supportive care; Increased O2 needs; on NRBM; called , left voicemail. 8-8 cont supportive care; escalate as needed; remains on O2 support; not intubated; Called next of kin- left message again. 8-9 cont care; D/w son at [phone] ; remains stable on NRBM; Diarrhea- check C-diff; start flagyl; 8-10 supportive care; lung infiltrate worse? cont supportive care with NRBM. 8-11 continue decadron and NRBM. 8-12 remains stable on NRBM; LUIS- recheck at 4pm; d/c HCTZ. 8-13 renal fn improved and stable; cont resp support. remains on HiFLo; Called son- updated. 8-14 supportive care; more time for recovery; Left message for son. Messi Gotti MD, PhD.
[2020-05-17] MEDS: FAMOTIDINE 20 MG TAB PO SCH ×2 (08:17→17:23)
--- NOTE | 2020-05-17 08:35 | Diagnostic Imaging Report ---
EXAM: CHEST SINGLE (PORTABLE) DATE: 05/17/2020 5:00 AM INDICATION: Viral pneumonia COMPARISON: 05/15/2020 FINDINGS: The trachea is midline. Patchy airspace opacities are identified throughout the lungs bilaterally, more prominent on the right. Findings are unchanged from the prior examination. There is no evidence for pneumothorax or significant volume pleural effusion. The cardiac mediastinal silhouette is stable in appearance. Questionable small amount of subcutaneous emphysema versus artifact noted within the upper chest wall/neck. No acute osseous abnormality identified. IMPRESSION: Unchanged airspace opacities identified throughout the lungs bilaterally which can be seen in the setting of a multifocal/viral infectious process. Signed by: Dr. Tom Rosales MD on 05/17/2020 8:31 AM
[2020-05-17] MEDS: LORATADINE 10 MG TAB PO SCH (08:51)
[2020-05-17] MEDS: ENOXAPARIN INJ 80 MG/0.8 ML SYR SC SCH ×2 (08:51→20:15)
[2020-05-17] MEDS: ZINC SULFATE 220 MG CAP PO SCH (08:51)
[2020-05-17] MEDS: DEXAMETHASONE SOD PHOS INJ 4 MG/ML VIAL IV SCH (08:51)
[2020-05-17] MEDS: ASCORBIC ACID 500 MG TAB PO SCH (08:51)
[2020-05-17] MEDS: BENZONATATE 100 MG CAP PO SCH ×3 (08:51→20:15)
--- NOTE | 2020-05-17 15:01 | Progress Note ---
DATE: SUBJECTIVE: Mr. Raines is doing better. There is no new complaint. Remains in intensive care unit. He is tired. He is short of breath, but overall stable. PHYSICAL EXAMINATION: GENERAL: He is currently alert. VITAL SIGNS: Stable. Currently afebrile. HEENT: He is not icteric. NECK: Supple. CHEST: Crackles. IMPRESSION: Pneumonia, coronavirus disease-2019, status post remdesivir, status post antibiotic. Finish 10 days of Decadron then discontinue. Continue with supportive care. He is on . This is day #10 today, we will finish the dexamethasone. We will observe him for aspiration pneumonia. Continue supportive care as ordered. We will follow. MD AQUILES Olmos/JASMINA /[id number]
[2020-05-17] MEDS: ACETAMINOPHEN 325 MG TAB PO PRN (15:11)
[2020-05-17] MEDS: BISMUTH SUBSALICYLATE 262 MG/15 ML 8OZ BTL PO PRN (15:11)
[2020-05-17] MEDS: ZOLPIDEM TARTRATE 10 MG TAB PO SCH (20:15)
[2020-05-17] MEDS: TRAMADOL HCL 50 MG TAB PO PRN (21:23)
[2020-05-17] MEDS: GUAIFENESIN/DEXTROMETHORPHAN LIQD 5 ML UDC NG PRN (21:36)
[2020-05-18] VITALS (26 sets, daily range): BP systolic 99–156; BP diastolic 56–93
[2020-05-18] MEDS: TRAMADOL HCL 50 MG TAB PO PRN ×3 (05:32→20:18)
[2020-05-18 06:24] LABS: BASOPHILS % 0.2 % (0.0-1.0); EOSINOPHILS % 0.2 % (0.0-6.0); HEMATOCRIT 42.6 % (38.2-49.6); HEMOGLOBIN 14.1 g/dL (14.0-18.0); LYMPHOCYTES # (AUTO) 0.8 (1.0-3.2); LYMPHOCYTES % 6.5 % (18.0-39.1); MEAN CORPUSCULAR HEMOGLOBIN 28.7 pg (28-32); MEAN CORPUSCULAR HGB CONC 33.1 g/dL (31-35); MEAN CORPUSCULAR VOLUME 86.8 fL (81-99); MONOCYTES # (AUTO) 0.6 (0.2-0.8); MONOCYTES % 4.8 % (4.4-11.3); NEUTROPHILS # (AUTO) 10.9 (2.1-6.9); NEUTROPHILS % 87.3 % (38.7-80.0); PLATELET COUNT 277 x10e3/uL (140-360); RED BLOOD COUNT 4.91 x10e6/uL (4.3-5.7); RED CELL DISTRIBUTION WIDTH 13.9 % (11.7-14.4)
[2020-05-18 06:36] LABS: ANION GAP 14.4 mmol/L (8-16); BLOOD UREA NITROGEN 31 mg/dL (7-26); BUN/CREATININE RATIO 31 (6-25); CALCIUM 8.9 mg/dL (8.4-10.2); CARBON DIOXIDE 21 mmol/L (22-29); CHLORIDE 100 mmol/L (98-107); CREATININE, SERUM 0.99 mg/dL (0.72-1.25); EST GLOMERULAR FILTRATION RATE > 60 ML/MIN (60-); GLUCOSE 94 mg/dL (74-118); POTASSIUM 4.4 mmol/L (3.5-5.1); SODIUM 131 mmol/L (136-145)
[2020-05-18] MEDS: FAMOTIDINE 20 MG TAB PO SCH ×2 (08:09→16:54)
--- NOTE | 2020-05-18 08:13 | NUR ---
IM- progress note O/N see below ROS: no f/c/s/N/V/D/POP/cp/skin rash/confusion/vision changes v/s; revd PE tired appearing anicteric ns1s2 reduced bs soft nt nd no e/t skin dry flat affect labs/meds revd A/P: 64yoM Multifocal PNA- azithromycin/ceftriaxone/loratadine/ Acute resp failure- decadron; O2; check COVID 19 COVID19 infection and PNA Acute diarrhea- check C-diff and start flagyl FEver- iv abx Transaminitis- f/u Obesity - check hab1c/lipids BMI 33.2- as above Prop; lovenox; pepcid dispo: 8-6 Hba1c 5.3. COVID19 positive PNA; cont remdesivir and decadron and abx. 8-7 cont supportive care; Increased O2 needs; on NRBM; called , left voicemail. 8-8 cont supportive care; escalate as needed; remains on O2 support; not intubated; Called next of kin- left message again. 8-9 cont care; D/w son at [phone] ; remains stable on NRBM; Diarrhea- check C-diff; start flagyl; 8-10 supportive care; lung infiltrate worse? cont supportive care with NRBM. 8-11 continue decadron and NRBM. 8-12 remains stable on NRBM; LUIS- recheck at 4pm; d/c HCTZ. 8-13 renal fn improved and stable; cont resp support. remains on HiFLo; Called son- updated. 8-14 supportive care; more time for recovery; Left message for son. 8-15 continue supportive care; Messi Gotti MD, PhD.
[2020-05-18] MEDS: BENZONATATE 100 MG CAP PO SCH ×3 (09:47→20:18)
[2020-05-18] MEDS: ZINC SULFATE 220 MG CAP PO SCH (09:47)
[2020-05-18] MEDS: ASCORBIC ACID 500 MG TAB PO SCH (09:47)
[2020-05-18] MEDS: LORATADINE 10 MG TAB PO SCH (09:47)
[2020-05-18] MEDS: ENOXAPARIN INJ 80 MG/0.8 ML SYR SC SCH ×2 (09:47→20:18)
--- NOTE | 2020-05-18 12:34 | Progress Note ---
DATE: SUBJECTIVE: Mr. Raines is in intensive care unit on nasal BiPAP, but comfortable. OBJECTIVE: VITAL SIGNS: Stable, afebrile. HEENT: He is not icteric. NECK: Supple. HEART: S1, S2. ABDOMEN: Soft. Bowel sounds present. EXTREMITIES: No edema. SKIN: No rash. IMPRESSION: Coronavirus disease-19 respiratory failure. Continue with plan as ordered. Continue PT/OT. His white count 12.46, afebrile. We will follow. MD AQUILES Olmos/MODL /[id number]
[2020-05-18] MEDS: ZOLPIDEM TARTRATE 10 MG TAB PO SCH (20:18)
[2020-05-19] VITALS (24 sets, daily range): BP systolic 85–161; BP diastolic 39–115
--- NOTE | 2020-05-19 02:22 | NUR ---
IM- progress note O/N see below ROS: no f/c/s/N/V/D/POP/cp/skin rash/confusion/vision changes v/s; revd PE tired appearing anicteric ns1s2 reduced bs soft nt nd no e/t skin dry flat affect labs/meds revd A/P: 64yoM Multifocal PNA- azithromycin/ceftriaxone/loratadine/ Acute resp failure- decadron; O2; check COVID 19 COVID19 infection and PNA Acute diarrhea- check C-diff and start flagyl FEver- iv abx Transaminitis- f/u Obesity - check hab1c/lipids BMI 33.2- as above Prop; lovenox; pepcid dispo: 8-6 Hba1c 5.3. COVID19 positive PNA; cont remdesivir and decadron and abx. 8-7 cont supportive care; Increased O2 needs; on NRBM; called , left voicemail. 8-8 cont supportive care; escalate as needed; remains on O2 support; not intubated; Called next of kin- left message again. 8-9 cont care; D/w son at [phone] ; remains stable on NRBM; Diarrhea- check C-diff; start flagyl; 8-10 supportive care; lung infiltrate worse? cont supportive care with NRBM. 8-11 continue decadron and NRBM. 8-12 remains stable on NRBM; LUIS- recheck at 4pm; d/c HCTZ. 8-13 renal fn improved and stable; cont resp support. remains on HiFLo; Called son- updated. 8-14 supportive care; more time for recovery; Left message for son. 8-15 continue supportive care; 8-16 doing ok; cont care; encouraged to sit up in bed when eating and start some exercises in bed. Messi Gotti MD, PhD.
--- NOTE | 2020-05-19 03:59 | NUR ---
Tramadol removed from ICU pixis for Agnes POST. Agnes RN to give to [facility] ICU pt for administration.
[2020-05-19] MEDS: TRAMADOL HCL 50 MG TAB PO PRN ×2 (04:00→10:38)
--- NOTE | 2020-05-19 06:01 | Diagnostic Imaging Report ---
EXAMINATION: CHEST SINGLE (PORTABLE) INDICATION: ^covid COMPARISON: 05/17/2020 FINDINGS: AP view TUBES and LINES: None. LUNGS: Lungs are well inflated. Diffuse bilateral airspace opacities, not significantly changed from prior exam. PLEURA: No pleural effusion or pneumothorax. HEART AND MEDIASTINUM: The cardiomediastinal silhouette is unremarkable. BONES AND SOFT TISSUES: No acute osseous lesion. Increased right neck base soft tissue emphysema with extension to the mediastinum on the right side. UPPER ABDOMEN: No free air under the diaphragm. IMPRESSION: Not significantly changed diffuse bilateral airspace opacities. Interval increase in right neck base soft tissue emphysema with suspected extension to the right mediastinum. Signed by: Dr. Jose Ascencio MD on 05/19/2020 5:58 AM
[2020-05-19 06:43] LABS: BASOPHILS % 0.1 % (0.0-1.0); EOSINOPHILS % 0.1 % (0.0-6.0); HEMATOCRIT 39.2 % (38.2-49.6); HEMOGLOBIN 14.2 g/dL (14.0-18.0); LYMPHOCYTES # (AUTO) 0.9 (1.0-3.2); LYMPHOCYTES % 7.1 % (18.0-39.1); MEAN CORPUSCULAR HEMOGLOBIN 33.2 pg (28-32); MEAN CORPUSCULAR HGB CONC 36.2 g/dL (31-35); MEAN CORPUSCULAR VOLUME 91.6 fL (81-99); MONOCYTES # (AUTO) 0.6 (0.2-0.8); MONOCYTES % 4.3 % (4.4-11.3); NEUTROPHILS # (AUTO) 11.2 (2.1-6.9); NEUTROPHILS % 87.4 % (38.7-80.0); PLATELET COUNT 191 x10e3/uL (140-360); RED BLOOD COUNT 4.28 x10e6/uL (4.3-5.7); RED CELL DISTRIBUTION WIDTH 17.4 % (11.7-14.4)
[2020-05-19 07:26] LABS: ALANINE AMINOTRANSFERASE 42 IU/L (0-55); ALBUMIN 2.5 g/dL (3.5-5.0); ALBUMIN/GLOBULIN RATIO 0.6 (0.8-2.0); ALKALINE PHOSPHATASE 100 IU/L (40-150); ANION GAP 15.3 mmol/L (8-16); BLOOD UREA NITROGEN 27 mg/dL (7-26); BUN/CREATININE RATIO 26 (6-25); CALCIUM 9.1 mg/dL (8.4-10.2); CARBON DIOXIDE 22 mmol/L (22-29); CHLORIDE 96 mmol/L (98-107); CREATININE, SERUM 1.02 mg/dL (0.72-1.25); EST GLOMERULAR FILTRATION RATE > 60 ML/MIN (60-); GLUCOSE 79 mg/dL (74-118); POTASSIUM 4.3 mmol/L (3.5-5.1); SODIUM 129 mmol/L (136-145)
[2020-05-19] MEDS: FAMOTIDINE 20 MG TAB PO SCH ×2 (07:45→16:30)
[2020-05-19] MEDS: LORATADINE 10 MG TAB PO SCH (09:15)
[2020-05-19] MEDS: BENZONATATE 100 MG CAP PO SCH ×2 (09:15→15:00)
[2020-05-19] MEDS: ASCORBIC ACID 500 MG TAB PO SCH (09:15)
[2020-05-19] MEDS: ENOXAPARIN INJ 80 MG/0.8 ML SYR SC SCH (09:15)
[2020-05-19] MEDS: ZINC SULFATE 220 MG CAP PO SCH (09:15)
[2020-05-19] MEDS ORDERED: LORAZEPAM INJ 2 MG/ML VIAL IV ONE (12:30)
[2020-05-19] MEDS ORDERED: LORAZEPAM INJ 2 MG/ML VIAL ONE (12:31)
[2020-05-19] MEDS: DEXMEDETOMIDINE 200MCG/NS 50ML 50 ML IV PRN ×2 (13:09→15:22)
--- NOTE | 2020-05-19 13:40 | NUR ---
1200: Pt asked for bedpan, became tachycardic, tachypneic and short of breath. Pt cleaned up and positioned to comfort. FiO2 increased to 100% on AIRVO 60L. NRB 15L 1230: Dr. Gotti called, received order for Ativan. Pt given ativan, and placed in prone position. 1245: Dr. Garcia called, recieved order for stat ABG and precedex gtt. 1330: Returned call to with results of ABG. to come round on patient. 1335: Dr Garcia at bedside to assess patient. Pt to be switched to Vapotherm. Will repeat ABG at 1700 and call back with results.
--- NOTE | 2020-05-19 14:44 | Progress Note ---
DATE: SUBJECTIVE: The patient is getting worse. He is on high-flow O2 Airvo and non-rebreather, saturating 91%. He has been started on Precedex because he was very anxious. This a.m. I got a call from the RN. Chest x-ray films reviewed showing bilateral infiltrates, bilateral airspace opacities and also showing pneumomediastinum, but no obvious pneumothorax. The patient has finished the Decadron and antibiotics as well. Dr. Allen is seeing the patient. REVIEW OF SYSTEMS: GENERAL: Denies any fevers or chills. He is arousable but sleepy as he is on Precedex. PHYSICAL EXAMINATION: VITAL SIGNS: Temperature 98.1, pulse of 88, blood pressure 131/58, O2 saturation is 91% on 60 L, FiO2 is 90%. HEENT: Head atraumatic. CHEST: Decreased air entry. HEART: S1, S2 audible. ABDOMEN: Soft. EXTREMITIES: No pedal edema. NEUROLOGIC: He is on Precedex, but arousable. LABORATORY DATA: Sodium 129, potassium 4.3, chloride 96, bicarb 22, BUN 27, and creatinine 1.02. White count of 12,000, hemoglobin 14.2, platelets 191. ASSESSMENT: Johnnie Raines is a 64-year-old male with coronavirus disease. The patient is progressively getting worse. Respiratory failure is getting worse. PLAN: We will try Vapotherm and see if he improves. Continue the patient on supportive care. At this point hold off on antibiotics and defer the need to ID. Continue the patient on Precedex. If it progressively got worse, may need intubation. This was discussed with RT and RN at bedside. MD HOMERO Paz/JASMINA /[id number]
[2020-05-19 15:45] LABS: INR 1.02; PROTHROMBIN TIME 13.9 seconds (11.9-14.5)
[2020-05-19 15:46] LABS: PARTIAL THROMBOPLASTIN TIME 37.7 seconds (23.8-35.5)
[2020-05-19 16:25] LABS: HEMATOCRIT 43.1 % (38.2-49.6); HEMOGLOBIN 14.4 g/dL (14.0-18.0)
[2020-05-19 17:01] LABS: ABG HCO3 23 mmol/L (22-26); ABG PCO2 38 mmHg (35-45); ABG PO2 62 mmHg (80-105); ABG TCO2 25
--- NOTE | 2020-05-19 20:30 | NUR ---
Spoke with son, Johnnie & his to give updates on patients status. Johnnie's contact # is [phone]. Hvyapu-br-vni Rehana's contact # is [phone]. All questions answered and they will call back tomorrow to f/u with day shift RN.
--- NOTE | 2020-05-19 22:55 | NUR ---
Patient c/o "stabbing" RU lobe chest pain, grabbing at site, stating it is "9/10" & "hurts when I take a breath in". STAT EKG, CXR, cardiac enzymes, CBC, CMP, PTT, PT/INR ordered. Awaiting results. PT desat from 93% to 87%. Pt repositioned and NRB mask applied for comfort and better ventilation. Now saturating 98%.
--- NOTE | 2020-05-19 23:05 | Diagnostic Imaging Report ---
EXAMINATION: CHEST SINGLE (PORTABLE) INDICATION: ^chest pain COMPARISON: 05/19/2020 at 5:15 AM FINDINGS: AP view TUBES and LINES: None. LUNGS: Lungs are well inflated. Again seen diffuse bilateral airspace opacities. PLEURA: No pleural effusion. Evaluation for pneumothorax, especially on the right side, is limited due to overlying chest wall emphysema. HEART AND MEDIASTINUM: The cardiomediastinal silhouette is unremarkable. BONES AND SOFT TISSUES: No acute osseous lesion. Soft tissue emphysema most notable in the right supraclavicular region, slightly increased from prior exam, now extending along the chest coyne. UPPER ABDOMEN: No free air under the diaphragm. IMPRESSION: Slight interval increase in soft tissue emphysema when compared to prior x-ray. Otherwise, unchanged. Signed by: Dr. Jose Ascencio MD on 05/19/2020 11:02 PM
[2020-05-19 23:13] LABS: BASOPHILS % 0.1 % (0.0-1.0); EOSINOPHILS % 0.3 % (0.0-6.0); HEMATOCRIT 43.6 % (38.2-49.6); HEMOGLOBIN 14.5 g/dL (14.0-18.0); LYMPHOCYTES % 6.7 % (18.0-39.1); MEAN CORPUSCULAR HEMOGLOBIN 28.9 pg (28-32); MEAN CORPUSCULAR HGB CONC 33.3 g/dL (31-35); MONOCYTES # (AUTO) 0.5 (0.2-0.8); MONOCYTES % 3.3 % (4.4-11.3); NEUTROPHILS # (AUTO) 12.8 (2.1-6.9); NEUTROPHILS % 88.8 % (38.7-80.0); PLATELET COUNT 216 x10e3/uL (140-360); RED BLOOD COUNT 5.01 x10e6/uL (4.3-5.7)
[2020-05-19 23:16] LABS: RED CELL DISTRIBUTION WIDTH 13.9 % (11.7-14.4)
[2020-05-19 23:23] LABS: INR 1.05; PROTHROMBIN TIME 14.3 seconds (11.9-14.5)
[2020-05-19 23:24] LABS: PARTIAL THROMBOPLASTIN TIME 38.3 seconds (23.8-35.5)
[2020-05-19 23:35] LABS: ALANINE AMINOTRANSFERASE 67 IU/L (0-55); ALBUMIN 2.5 g/dL (3.5-5.0); ALBUMIN/GLOBULIN RATIO 0.5 (0.8-2.0); ALKALINE PHOSPHATASE 121 IU/L (40-150); ANION GAP 17.1 mmol/L (8-16); BLOOD UREA NITROGEN 29 mg/dL (7-26); BUN/CREATININE RATIO 25 (6-25); CALCIUM 9.2 mg/dL (8.4-10.2); CARBON DIOXIDE 23 mmol/L (22-29); CHLORIDE 94 mmol/L (98-107); CREATINE KINASE 85 IU/L (30-200); CREATININE, SERUM 1.17 mg/dL (0.72-1.25); EST GLOMERULAR FILTRATION RATE > 60 ML/MIN (60-); GLUCOSE 88 mg/dL (74-118); POTASSIUM 5.1 mmol/L (3.5-5.1); SODIUM 129 mmol/L (136-145)
[2020-05-20] VITALS (30 sets, daily range): BP systolic 79–187; BP diastolic 44–116
[2020-05-20] MEDS: ENOXAPARIN INJ 80 MG/0.8 ML SYR SC SCH ×2 (00:11→09:00)
[2020-05-20] MEDS: BENZONATATE 100 MG CAP PO SCH ×4 (00:11→20:47)
[2020-05-20] MEDS: TRAMADOL HCL 50 MG TAB PO PRN ×2 (00:11→07:34)
[2020-05-20] MEDS: ZOLPIDEM TARTRATE 10 MG TAB PO SCH ×2 (00:11→20:47)
[2020-05-20] MEDS: VANCOMYCIN 1GM/NS 250 ML 250 ML IV SCH ×2 (02:00→11:30)
[2020-05-20 05:13] LABS: CREATINE KINASE MB 1.8 ng/mL (0-5.0)
[2020-05-20 05:23] LABS: BASOPHILS % 0.1 % (0.0-1.0); EOSINOPHILS # (AUTO) 0.1 (0.0-0.4); EOSINOPHILS % 0.8 % (0.0-6.0); HEMATOCRIT 43.8 % (38.2-49.6); HEMOGLOBIN 14.5 g/dL (14.0-18.0); LYMPHOCYTES # (AUTO) 0.9 (1.0-3.2); LYMPHOCYTES % 6.8 % (18.0-39.1); MEAN CORPUSCULAR HEMOGLOBIN 28.7 pg (28-32); MEAN CORPUSCULAR HGB CONC 33.1 g/dL (31-35); MEAN CORPUSCULAR VOLUME 86.7 fL (81-99); MONOCYTES # (AUTO) 0.4 (0.2-0.8); MONOCYTES % 2.9 % (4.4-11.3); NEUTROPHILS # (AUTO) 11.7 (2.1-6.9); NEUTROPHILS % 88.3 % (38.7-80.0); PLATELET COUNT 206 x10e3/uL (140-360); RED BLOOD COUNT 5.05 x10e6/uL (4.3-5.7)
[2020-05-20 06:01] LABS: ALANINE AMINOTRANSFERASE 63 IU/L (0-55); ALBUMIN 2.3 g/dL (3.5-5.0); ALBUMIN/GLOBULIN RATIO 0.5 (0.8-2.0); ALKALINE PHOSPHATASE 114 IU/L (40-150); ANION GAP 16.7 mmol/L (8-16); BLOOD UREA NITROGEN 28 mg/dL (7-26); BUN/CREATININE RATIO 24 (6-25); CALCIUM 8.6 mg/dL (8.4-10.2); CARBON DIOXIDE 22 mmol/L (22-29); CHLORIDE 94 mmol/L (98-107); CREATININE, SERUM 1.18 mg/dL (0.72-1.25); EST GLOMERULAR FILTRATION RATE > 60 ML/MIN (60-); GLUCOSE 74 mg/dL (74-118); POTASSIUM 4.7 mmol/L (3.5-5.1); SODIUM 128 mmol/L (136-145)
--- NOTE | 2020-05-20 07:13 | NUR ---
infectious disease progress note May 19, 2020 Patient seen and examined chart reviewed Patient remains intensive care unit Seen little bit worse today he patient is getting worse. He is on high-flow O2 Airvo and non-rebreather, saturating 91%. He has been started on Precedex because he was very anxious. REVIEW OF SYSTEMS: GENERAL: Denies any fevers or chills. He is arousable but sleepy as he is on Precedex. PHYSICAL EXAMINATION: VITAL SIGNS: Temperature 98.1, pulse of 88, blood pressure 131/58, O2 saturation is 91% on 60 L, FiO2 is 90%. HEENT: Head atraumatic. CHEST: Decreased air entry. HEART: S1, S2 audible. ABDOMEN: Soft. EXTREMITIES: No pedal edema. NEUROLOGIC: He is on Precedex, but arousable. LABORATORY DATA: Sodium 129, potassium 4.3, chloride 96, bicarb 22, BUN 27, and creatinine 1.02. White count of 12,000, hemoglobin 14.2, platelets 191. ASSESSMENT: Respiratory failure Covid 19 Obesity Hyponatremia Concern about aspiration Recheck CBC initially came panel Reassess in the morning continue with supportive care
--- NOTE | 2020-05-20 07:17 | NUR ---
infectious disease progress note May 20, 2020 Patient seen and examined chart reviewed patient remains intensive care unit Discussed with the medical team HEENT normocephalic chest few crackles heart S1-S2 abdomen soft bosun present extremities no edema Skin no rash medication reviewed Lab data reviewed Patient covid 19 Respiratory failure Concern aspiration pneumonia we will start vancomycin and meropenem plan 5-7 days Obtain sputum culture sensitivity We will follow
--- NOTE | 2020-05-20 07:28 | NUR ---
Dr. Gotti aware of patients c/o of c/p and cardiac markers/labs/imaging. Stated he will be by to see patient and assess for cardiology consultation. Day RN notified.
[2020-05-20] MEDS: FAMOTIDINE 20 MG TAB PO SCH ×2 (07:30→15:50)
[2020-05-20 07:33] LABS: ALBUMIN 2.4 g/dL (3.5-5.0); BILIRUBIN,DIRECT 0.4 mg/dL (0.0-0.5)
[2020-05-20] MEDS: ACETAMINOPHEN 325 MG TAB PO PRN ×2 (07:34→20:35)
[2020-05-20] MEDS: BISMUTH SUBSALICYLATE 262 MG/15 ML 8OZ BTL PO PRN (07:34)
[2020-05-20] MEDS ORDERED: MEROPENEM 1GM 100 ML IV SCH (08:00)
[2020-05-20] MEDS ORDERED: FENTANYL 2000MCG/NS 250 250 ML IV PRN (08:15)
[2020-05-20] MEDS ORDERED: BENZOCAINE 20% SPR 60 ML CAN MT ONE (08:30)
[2020-05-20] MEDS: MIDAZOLAM HCL 5MG/ML 10ML VIAL 100 ML IV PRN ×3 (08:49→20:35)
[2020-05-20] MEDS: ZINC SULFATE 220 MG CAP PO SCH (09:00)
[2020-05-20] MEDS ORDERED: VANCOMYCIN 1GM/NS 250 ML 250 ML IV SCH (09:00)
[2020-05-20] MEDS: LORATADINE 10 MG TAB PO SCH (09:00)
[2020-05-20] MEDS: ASCORBIC ACID 500 MG TAB PO SCH (09:00)
[2020-05-20] MEDS ORDERED: SODIUM CHLORIDE 0.9% 1000ML 1,000 ML ONE (09:28)
--- NOTE | 2020-05-20 09:43 | Diagnostic Imaging Report ---
TECHNIQUE: Frontal view of the chest. INDICATION: 64-year-old man with pneumothorax. COMPARISON: Chest radiograph 05/19/2020. FINDINGS: LINES/TUBES: Endotracheal tube terminates approximately 4.1 cm above the kris. LUNGS: No significant change in bilateral airspace opacities. PLEURA: Questionable left apical pneumothorax with apparent maximal airgap of 1.6 cm. No significant pleural effusion. HEART AND MEDIASTINUM: The cardiomediastinal silhouette is unchanged. SOFT TISSUES AND BONES: No acute osseous abnormalities. Increased subcutaneous emphysema in the lower neck and left chest. IMPRESSION: Lines/tubes as above. Questionable small left apical pneumothorax. Increased subcutaneous emphysema in the lower neck and left chest. Otherwise, no significant change since 05/19/2020. Signed by: Emmanuel Zepeda MD on 05/20/2020 9:39 AM
[2020-05-20] MEDS ORDERED: SODIUM CHLORIDE 0.9% 1000ML 1,000 ML IV ONE (10:00)
[2020-05-20] MEDS: FENTANYL 2000MCG/NS 250 250 ML IV PRN ×3 (10:19→23:49)
[2020-05-20] MEDS: NOREPINEPHRINE 8 MG/D5W 250 ML 250 ML IV PRN ×2 (10:26→23:50)
--- NOTE | 2020-05-20 10:38 | Operative Report ---
DATE OF PROCEDURE: SURGEON: Jag Fan MD PROCEDURE: Endotracheal intubation with GlideScope. PREOPERATIVE DIAGNOSIS: Respiratory failure. POSTOPERATIVE DIAGNOSIS: Respiratory failure. CONSENT: Consent was obtained from the patient. MEDICATIONS: Hurricaine spray for local anesthesia, etomidate 20 mg IV. DESCRIPTION OF PROCEDURE: The patient was preoxygenated with Vapotherm and non-rebreather. The saturations were in the low 80s. He was given 1 mg of Versed and 20 mg of etomidate. His posterior pharynx was also anesthetized with Cetacaine spray. He was ventilated briefly with an Ambu bag. A 3.0 blade was then used to visualize the glottis. An 8.0 endotracheal tube was passed on the first attempt through the glottis. There was good CO2 return and equal breath sounds bilaterally. COMPLICATIONS: None. ESTIMATED BLOOD LOSS: None. Jag Fan MD [facility]/MODL /[id number]
--- NOTE | 2020-05-20 10:43 | Diagnostic Imaging Report ---
X-ray chest AP portable Comparison: Earlier same day at 8:41 AM History: Central line placement Findings: A left IJ route central venous catheter has been placed with the tip overlying right atrium. This is an acceptable position. A new nasogastric tube has been placed with the side hole overlying the left upper quadrant and the tip excluded from the picture. Compared with the previous exam, the lung infiltrates remain unchanged. The endotracheal tube is unchanged. There is more prominence of the left pneumothorax, extension of the surgical emphysema farther into the right pectoralis region. There is also presence of faint linear lucencies in the mediastinum that likely represent pneumomediastinum. This can be best evaluated on a CT. Impression: Left IJ route central venous line apparently in a good position. A new Nasogastric tube. Extension of the chest wall surgical emphysema. Signed by: Werner Mckeon MD on 05/20/2020 10:39 AM
[2020-05-20] MEDS: MEROPENEM 1GM 100 ML IV SCH ×2 (10:44→18:08)
--- NOTE | 2020-05-20 10:44 | Diagnostic Imaging Report ---
X-ray abdomen one view History: Nasogastric tube placement Findings: A nasogastric tube seen coursing down the expected path with the sidehole in the tip in the upper abdomen in the expected locations. The exact location cannot be ascertained in the absence of injected contrast medium or air in the bowel. Nonobstructive bowel gas pattern. Impression: A new nasogastric tube in the expected position. Signed by: Werner Mckeon MD on 05/20/2020 10:41 AM
[2020-05-20 11:15] LABS: ABG HCO3 22 mmol/L (22-26); ABG PCO2 45 mmHg (35-45); ABG PO2 89 mmHg (80-105); ABG TCO2 23
[2020-05-20 12:45] LABS: CREATINE KINASE MB 1.8 ng/mL (0-5.0)
--- NOTE | 2020-05-20 13:50 | NUR ---
IM- progress note O/N see below ROS: no f/c/s/N/V/D/POP/cp/skin rash/confusion/vision changes v/s; revd PE tired appearing anicteric ns1s2 reduced bs soft nt nd no e/t skin dry flat affect labs/meds revd A/P: 64yoM Multifocal PNA- azithromycin/ceftriaxone/loratadine/ Acute resp failure- decadron; O2; check COVID 19 COVID19 infection and PNA Acute diarrhea- check C-diff and start flagyl FEver- iv abx Transaminitis- f/u Obesity - check hab1c/lipids BMI 33.2- as above Prop; lovenox; pepcid dispo: 8-6 Hba1c 5.3. COVID19 positive PNA; cont remdesivir and decadron and abx. 8-7 cont supportive care; Increased O2 needs; on NRBM; called , left voicemail. 8-8 cont supportive care; escalate as needed; remains on O2 support; not intubated; Called next of kin- left message again. 8-9 cont care; D/w son at [phone] ; remains stable on NRBM; Diarrhea- check C-diff; start flagyl; 8-10 supportive care; lung infiltrate worse? cont supportive care with NRBM. 8-11 continue decadron and NRBM. 8-12 remains stable on NRBM; LUIS- recheck at 4pm; d/c HCTZ. 8-13 renal fn improved and stable; cont resp support. remains on HiFLo; Called son- updated. 8-14 supportive care; more time for recovery; Left message for son. 8-15 continue supportive care; 8-16 doing ok; cont care; encouraged to sit up in bed when eating and start some exercises in bed. 8-17 Bleeding yesterday in stool and urine; blood per urology; fever and hypotension, worsened resp status, required intubation during night; I have upda eileen son by telephone of all these changes; I will keep him updated as in past. continue care. Messi Gotti MD, PhD.
[2020-05-20] MEDS: DEXMEDETOMIDINE 200MCG/NS 50ML 50 ML IV PRN (13:58)
[2020-05-20] MEDS ORDERED: MIDAZOLAM HCL 5MG/ML 10ML VIAL 100 ML BAG IV ONE (14:08)
[2020-05-20] MEDS ORDERED: FENTANYL 2,000 MCG/250 ML BAG ONE (14:08)
[2020-05-20] MEDS ORDERED: MIDAZOLAM HCL 2 MG/2 ML VIAL INJ ONE (14:13)
[2020-05-20] MEDS ORDERED: ETOMIDATE 40 MG/ 20ML VIAL IV ONE (14:14)
[2020-05-20] MEDS ORDERED: LIDOCAINE JELLY 2% 10ML URO-JET ONE (16:24)
--- NOTE | 2020-05-20 16:25 | NUR ---
Nutrition Intervention Note RD Recommendation(s) for Physician: - Consider liberalizing fluid restriction per current Na trend. Fluid restriction per MD. Plan of Care: RD following, monitoring for tolerance and adequacy Nutrition reason for involvement: follow up RD Assessment: 05/20: Follow up. Pt remains in IMCU, currently on high-flow O2 and on rebreather. Pt currently on low dose Levophed and on Precedex, due to anxiety. Pt eating 75-100% of meals, pt with diarrhea- on Questran and pepto bismol. Chart reviewed. Will continue to monitor. (05/13/20) Chart reviewed. Labs and meds reviewed. Pt is a 64 year old male admitted with COVID19, pneumonia, and hypoxia. Unable to enter room due to isolation precautions. No reports of weight loss per chart. It is recorded that pt consumed 75% of meals yesterday and 25-50% of breakfast and lunch today. If pt consumes <50% of meals, offer Ensure compact. Will continue to monitor. Primary Diagnose(s): COVID19, pneumonia, and hypoxia PMH: HTN GI: LBM 05/20- diarrhea Skin: no PU Labs: 05/20: Na 128, K 4.7, BUN 28, Cr 1.18, Gluc 74 Meds: questran, pepto bismol, pepcid IV/Drips: Levophed at 3 mcg/min, Precedex drip, Fentanyl drip Ht: 66 in Wt: 205 lb BMI: 33.1 kg/m2 IBW:142 lb Malnutrition Evaluation (05/20/20) Pt does not meet criteria for malnutrition at this time. PO intake/adequacy: none- meeting needs per current intake Wt loss: none- no wt loss reported on admit, questionable wt changes since admit noted. Fat loss: none- adequate fat stores indicated per BMI Edema: BELEN Functional status: BELEN Nutrition Prescription (Diet Order): Cardiac Estimated Nutritional Needs: Calories: 0769-1559 (22-25kcal/kg/d) Weight used: IBW Protein: 97-129 (1.5-2g/kg/d) Weight used: IBW Diet Adequacy: Meeting calorie needs, meeting protein needs Tolerance: tolerating po Diet Education Needs Assessment: Diet education not indicated. Nutrition Care Level: Moderate Nutrition Diagnosis: Increased nutrient needs (Na) related to current medical condition and diarrhea as evidenced by Na depletion. Goal: Patient will meet 75-100% of estimated needs by follow up Progress: progressing Interventions: Mineral, fat modified diet Monitoring/Evaluation: Total energy intake, Total protein intake, modified diet, Weight change Signed: April Ibarra RD, LD, [facility]
--- NOTE | 2020-05-20 16:31 | Diagnostic Imaging Report ---
X-ray chest single view portable Comparison: 05/20/2020 History: Rule out pneumothorax Findings: There is a right pneumothorax. There is lucency along the medial left hemithorax that raises a strong possibility of a left pneumothorax also. There is dense opacification of both lungs. There is presence of linear lucency in the mediastinum. Pneumomediastinum is not ruled out. Surgical emphysema in the chest wall and neck is slightly improved. An endotracheal tube is seen with the tip just above the kris. It should be retracted approximately 2-2.5 cm. Left IJ route central line remains unchanged. A nasogastric tube remains unchanged. No other acute changes in the radiographic findings. Impression: Definite right pneumothorax. Strong suspicion of a left pneumothorax. Please retract the ET tube approximately 2-2.[address] Mckeon called the report to the ICU. Signed by: Werner Mckeon MD on 05/20/2020 4:28 PM
[2020-05-20] MEDS ORDERED: LIDOCAINE HCL 2% LOCAL 20 ML VIAL ONE (16:52)
[2020-05-20] MEDS ORDERED: CISATRACURIUM BESYLATE 100 MG in SODIUM CHLORIDE 0.9% 100 ML 100 ML IV PRN (17:00)
[2020-05-20] MEDS: CISATRACURIUM BESYLATE 100 MG in SODIUM CHLORIDE 0.9% 100 ML 100 ML IV SCH ×2 (17:39→23:48)
[2020-05-20] MEDS ORDERED: LIDOCAINE HCL 2% LOCAL 20 ML VIAL INJ ONE (18:15)
--- NOTE | 2020-05-20 19:08 | Diagnostic Imaging Report ---
EXAMINATION: CHEST SINGLE (PORTABLE) COMPARISON: Chest x-ray 1430 hours, abdominal x-ray 1005 hours INDICATION: ^chest tube placement ^[id number] ^[id number] DISCUSSION: Frontal view of the chest obtained at 1834 hours. HEART AND MEDIASTINUM: The heart is normal in size and midline in position. The aorta is tortuous. Lucency surrounding the left heart border is similar to the abdominal x-ray. LINES: * Endotracheal tube terminates 2 to 3 cm above the kris. * Right chest tube has been placed terminating between the fourth and fifth ribs. * Right IJ central venous catheter terminates in the SVC. Enteric tube extends past the diaphragm. LUNGS/PLEURA: Multifocal infiltrates are redemonstrated. No large effusions. Right pneumothorax measures 1.3 cm, stable. Left pneumothorax at the apex measures 1.2 cm. BONES AND SOFT TISSUES: Extensive subcutaneous emphysema. Osseous structures are stable. IMPRESSION: 1. Stable right pneumothorax after chest tube placement. 2. Small left apical pneumothorax. 3. Air surrounding the left heart border may be due to extrapleural pneumothorax or pneumomediastinum. 4. Stable extensive subcutaneous emphysema. 5. Stable pulmonary infiltrates. Signed by: Dr. Sung Paiz MD on 05/20/2020 7:05 PM
--- NOTE | 2020-05-20 19:40 | Operative Report ---
DATE OF PROCEDURE: SURGEON: Jarod Garcia MD PREPROCEDURE DIAGNOSIS: Hypotension. POSTPROCEDURE DIAGNOSIS: Hypotension. PROCEDURE PERFORMED: Central line placement. PROCEDURE IN DETAIL: After standard aseptic measure, real-time ultrasound was used with a sterile sleeve to locate the left internal jugular vein. 20 inches triple-lumen catheter was placed with Seldinger technique. Good blood flow was seen in all three ports. Jarod Garcia MD [facility]/MODL /[id number]
--- NOTE | 2020-05-20 19:41 | NUR ---
0730: Patient short of breath, tachycardic, tachypneic, saying he "cannot get any air", grasping for air. Discussed intubation procedure with patient, explained the process and possible necessity for additional IV line/ sedation/pain medications/ nutrition etc. Patient consented to emergency intubation, said he "was tired and cant breath", Dr. Garcia called, said to intubate patient and he would come see the patient. Dr. Fan notified, asked to intubate. 0830: Dr. Nikki Fan intubated patient successfully, #8 24@lip ETT. 2mg Versed and 20mg Etomidate administered. Fentanyl and Versed gtts started. 0915: Dr. Garcia placed left IJ TL central line successfully. 0930: L nare NGT placed. Pt hypotensive, tachycardic, levophed gtt started. 0950: Chest and KUB xrays. Dr Garcia requesting repeat CXR at 1530 to check for developing pneumothorax and worsening subq emphysema. 1600: Dr. Garcia called about R pneumothorax and possible developing L pnuemo. Dr. Emery consulted for chest tube placement at bedside. Nimbex gtt ordered, as patient was at max rate for sedation and was asynchronous with vent. 1715: R upper anterior chest tube place bedside by Dr. Emery. Chest tube attached to atrium with -20 wall suction, no signs of air leak. 1800: Dr. Martinez bedside with urology team for placement of blood catheter guided with cystoscopy. Pt history of prostate surgery and past suprapubic catheter resulted in obstruction, Dr. Martinez was able to place 5fr catheter. 100ml of pink urine aspirated. Catheter attached with tape and tegaderms. 1830: Repeat CXR after chest tube placement. 1850: Shift report handoff given to oncoming nurse. Provided Dr Emery contact info in case of worse L pneumo
--- NOTE | 2020-05-20 19:50 | Progress Note ---
DATE: SUBJECTIVE: The patient was seen at 9:30 in the morning as the patient was unstable. Central line was placed and the patient was again seen at 7:00 p.m. He became progressively worse and became short of breath. I was called early this morning and evaluated the patient in the morning. The patient was intubated because of respiratory failure. Central line was placed later on for hypotension. The patient has pneumothorax. Case discussed with Dr. Evan Emery. Chest tube was placed by him in the right hemithorax. The patient has severe pneumomediastinum as well. REVIEW OF SYSTEMS: Unable to elicit any. The patient is sedated and intubated. He remained hypoxic with sedation with fentanyl, Versed, and Precedex. Precedex was causing severe hypotension. Now, he is on Nimbex and paralyzed. PHYSICAL EXAMINATION: VITAL SIGNS: T-max of 101.5, blood pressure is 96/60, respiratory rate is 18 to 20. He is on mechanical ventilator, FiO2 of 100%, PEEP of 5 because of pneumothorax. HEENT: Head atraumatic and normocephalic. CHEST: Crackles bilaterally. HEART: S1, S2 audible. ABDOMEN: Soft. EXTREMITIES: No pedal edema. NEUROLOGIC: He is sedated, intubated, paralyzed. [place]AT[place]: [place] [address], hemoglobin 14.5, platelets 206. Chemistry reviewed. Blood gas post intubation, pH of 7.40, pCO2 of 32, PO2 of 62, O2 saturation 91%. ASSESSMENT/PLAN: Mr. Raines is a 64-year-old male with coronavirus disease 2019 pneumonia and acute hypoxic respiratory failure. The patient was intubated this morning for severe respiratory failure requiring intubation. Current problems: 1. Acute hypoxic failure, secondary to coronavirus disease 2019 pneumonia, possibility of superimposed bacterial pneumonia. The patient has fever of 101, already on vancomycin and meropenem, started by Infectious Disease business solutions consultant. 2. Pneumothorax and pneumomediastinum. Right-sided chest tube has been placed post chest tube x-ray showing that the pneumothorax is stable. 3. Extensive subcu emphysema. Overall the patient's prognosis poor with severe coronavirus disease 2019 pneumonia. We will also ask the RN to keep the patient in prone position. Critical care time spent, 55 minutes. MD HOMERO Paz/JELENAL /[id number]
--- NOTE | 2020-05-20 19:57 | NUR ---
Results of CXR post chest tube insertion read to Dr. Emery. No new orders received at this time.
[2020-05-21] VITALS (31 sets, daily range): BP systolic 80–107; BP diastolic 52–68
[2020-05-21] MEDS: VANCOMYCIN 1GM/NS 250 ML 250 ML IV SCH ×2 (00:30→11:43)
[2020-05-21] MEDS: MIDAZOLAM HCL 5MG/ML 10ML VIAL 100 ML IV PRN ×4 (01:58→18:43)
[2020-05-21] MEDS: MEROPENEM 1GM 100 ML IV SCH ×3 (03:55→18:29)
[2020-05-21 04:57] LABS: BASOPHILS # (AUTO) 0.1 (0.0-0.1); BASOPHILS % 0.2 % (0.0-1.0); EOSINOPHILS # (AUTO) 0.1 (0.0-0.4); EOSINOPHILS % 0.2 % (0.0-6.0); HEMATOCRIT 38.1 % (38.2-49.6); HEMOGLOBIN 12.3 g/dL (14.0-18.0); LYMPHOCYTES # (AUTO) 1.3 (1.0-3.2); LYMPHOCYTES % 5.6 % (18.0-39.1); MEAN CORPUSCULAR HEMOGLOBIN 29.8 pg (28-32); MEAN CORPUSCULAR HGB CONC 32.3 g/dL (31-35); MEAN CORPUSCULAR VOLUME 92.3 fL (81-99); MONOCYTES # (AUTO) 0.9 (0.2-0.8); MONOCYTES % 3.6 % (4.4-11.3); NEUTROPHILS # (AUTO) 21.5 (2.1-6.9); NEUTROPHILS % 89.2 % (38.7-80.0); PLATELET COUNT 203 x10e3/uL (140-360); RED BLOOD COUNT 4.13 x10e6/uL (4.3-5.7); RED CELL DISTRIBUTION WIDTH 14.4 % (11.7-14.4)
[2020-05-21 05:16] LABS: CALCIUM 7.9 mg/dL (8.4-10.2); CREATININE, SERUM 1.72 mg/dL (0.72-1.25)
[2020-05-21] MEDS: NOREPINEPHRINE 8 MG/D5W 250 ML 250 ML IV PRN (06:51)
--- NOTE | 2020-05-21 06:59 | NUR ---
Called Dr. Bower per Dr. Gotti' request for consult this AM. Per Dr. Bower, he does not take any COVID POSITIVE patients and will not be available to see the patient. Dr. Gotti notified, order for consult for Dr. Salvador received. Spoke with answering service for Dr. Salvador at 0622 regarding new consult.
[2020-05-21] MEDS: FENTANYL 2000MCG/NS 250 250 ML IV PRN ×3 (07:01→18:34)
[2020-05-21] MEDS: FAMOTIDINE 20 MG TAB PO SCH ×2 (08:27→16:59)
[2020-05-21] MEDS: ASCORBIC ACID 500 MG TAB PO SCH (08:27)
[2020-05-21] MEDS: ZINC SULFATE 220 MG CAP PO SCH (08:28)
[2020-05-21] MEDS: LORATADINE 10 MG TAB PO SCH (08:30)
[2020-05-21] MEDS: BENZONATATE 100 MG CAP PO SCH ×3 (08:30→19:55)
--- NOTE | 2020-05-21 08:34 | NUR ---
HEMATOLOGY/ONCOLOGY CONSULTATION NOTE: Requesting Physician: Dr. Messi Gotti Consulting Physician: Dr. David Salvador, Tia Perdomo PA-C CHIEF COMPLAINT: COVID19 PNA HIStoRY OF PRESENT ILLNESS: Mr. Raines is a 64 year old male with past medical history of obesity and hypertension who was admitted on 05/08/2020 for dyspnea and cough with positive COVID19. During patient hospitalization, his respiratory status worsening and eventually required intubation on 05/20/2020. Patient has been on IV antibiotics during his stay as there is concern for super imposed bacterial infection. Patients CXR has progressively worsened during his stay with most notable development right pneumothorax requiring chest tube placement, small left apical pneumothorax, and subcutaneous emphysema shown on CXR from 05/20/2020. Patient has been on full dose Lovenox 1mg/kg BID since 05/14/2020. Due to intermittent bleeding episodes most notably from blood catheter and chest tube insertion site yesterday Lovenox has been stopped and HIT panel has been ordered. Hematology/Oncology has been consulted to assist with management. Presently, patient is in the COVID19 ICU intubated and sedation. Discussed with nurse. No signs of overt bleeding at this time. ALLERGIES: Iodine PAST MEDICAL HISTORY: Hypertension, obesity PAST SURGICAL HISTORY: Unable to obtain PAST FAMILY HISTORY: Unable to obtain SOCIAL HISTORY: No history of tobacco use, alcohol use, or illicit drug use per chart review. REVIEW OF SYSTEMS: 14 point ROS unable to obtain secondary to patient intubated/sedated. COVSD19 ICU. PHYSICAL EXAM: Vitals: Reviewed as per EMR. Temp: 100.1degF BP 89/57 PE not performed due to COVID-19 contact precautions. LABORATORY/RADIOLOGY DATA: Reviewed per EMR. ASSESSMENT AND PLAN: Mr. Raines is a 64 year old male with past medical history of obesity and hypertension who was admitted on 05/08/2020 for dyspnea and cough with positive COVID19. During patient hospitalization, his respiratory status worsening and eventually required intubation on 05/20/2020. Patient has been on IV antibiotics during his stay as there is concern for super imposed bacterial infection. Patients CXR has progressively worsened during his stay with most notable development right pneumothorax requiring chest tube placement, small left apical pneumothorax, and subcutaneous emphysema shown on CXR from 05/20/2020. Patient has been on full dose Lovenox 1mg/kg BID since 05/14/2020. Due to intermittent bleeding episodes most notably from blood catheter and chest tube insertion site yesterday Lovenox has been stopped and HIT panel has been ordered. Hematology/Oncology has been consulted to assist with management. 1. COVID-19/aspiration PNA: In the COVID ICU, pharmacologically sedated and recently intubated yesterday. Sputum cultures pending. Patient on Zinc, Vit C, and broad spectrum IV antibiotics with worsening leukocytosis now 24,000. Managed per ICU/primary team, ID, and Pulmonary on board. 2. Anemia: Mild with hgb slightly trending down now in 12 range. Will obtain baseline workup and provide further recommendations pending results. Noted FOBT positive on 05/19/2020. Monitor closely for now. 3. Bleeding: Intermittent from blood/chest tube site per nursing staff. HIT panel requested and pending, follow up results. Will obtain DIC panel however this is less likely given patient recent INR of 1.05 on 05/19 and normal platelet count at 203,000. Hold off on all anticoagulation at this time. Monitor closely for now. 4. Renal failure: Traumatic from blood cath with little UOP per nursing? Will monitor closely as this can be associated with worsening COVID19 status. Managed per ICU/primary team and Urology on board. 5. Anticoagulation: Patient is at increased risk for microthrombotic event given COVID19 and worsening respiratory status requiring intubation. Patient kidney function also worsening per #4. However, given intermittent bleeding episodes, Lovenox discontinued and will hold off on anticoagulation for now as per #3. Monitor closely for now. 6. Hypotension: Started on Levophed. Recommend holding opioid medication for SBP < 90. Managed per primary/ICU team. 7. GOC: Unfortunately, patient prognosis appears guarded at this time. Above plan discussed with Dr. David Salvador. Thank you for the consult. I will be available. Please call with questions.
--- NOTE | 2020-05-21 08:38 | NUR ---
Infectious disease progress note May 21, 2020 Patient remains intensive care unit patient was seen examined chart reviewed discussed with medical team and we did review her chart reviewed Patient is intubated sedated vitals stable afebrile currently HEENT normocephalic neck supple chest few rhonchi bilateral heart S1-S2 abdomen soft also present extremities no edema. Impression covid 19 Respiratory failure Diabetes mellitus Superimposed bacterial pneumonia/aspiration Case was discussed with the critical care please see orders concerned about superimposed bacterial/fungal infection She remains still critical to go for a CT scan
--- NOTE | 2020-05-21 08:43 | NUR ---
[facility] FULL CONSULTATION NOTE BELOW. HOLD ANTICOAGULATION FOR NOW, AWAIT HIT AND DIC PANEL. DISCUSSED WITH NURSE. H/H AND PLATELETS STABLE. CREATININE TRENDING UP. MONITOR CLOSELY. Thank you, MIQUEL Baca Dr.
[2020-05-21 10:56] LABS: INR 1.18; PROTHROMBIN TIME 15.7 seconds (11.9-14.5)
--- NOTE | 2020-05-21 11:33 | NUR ---
IM- progress note O/N see below ROS: no f/c/s/N/V/D/POP/cp/skin rash/confusion/vision changes v/s; revd PE tired appearing anicteric ns1s2 reduced bs soft nt nd no e/t skin dry flat affect labs/meds revd A/P: 64yoM Multifocal PNA- azithromycin/ceftriaxone/loratadine/ Acute resp failure- decadron; O2; check COVID 19 COVID19 infection and PNA Acute diarrhea- check C-diff and start flagyl FEver- iv abx Transaminitis- f/u Obesity - check hab1c/lipids BMI 33.2- as above Prop; lovenox; pepcid dispo: 8-6 Hba1c 5.3. COVID19 positive PNA; cont remdesivir and decadron and abx. 8-7 cont supportive care; Increased O2 needs; on NRBM; called , left voicemail. 8-8 cont supportive care; escalate as needed; remains on O2 support; not intubated; Called next of kin- left message again. 8-9 cont care; D/w son at [phone] ; remains stable on NRBM; Diarrhea- check C-diff; start flagyl; 8-10 supportive care; lung infiltrate worse? cont supportive care with NRBM. 8-11 continue decadron and NRBM. 8-12 remains stable on NRBM; LUIS- recheck at 4pm; d/c HCTZ. 8-13 renal fn improved and stable; cont resp support. remains on HiFLo; Called son- updated. 8-14 supportive care; more time for recovery; Left message for son. 8-15 continue supportive care; 8-16 doing ok; cont care; encouraged to sit up in bed when eating and start some exercises in bed. 8-17 Bleeding yesterday in stool and urine; blood per urology; fever and hypotension, worsened resp status, required intubation during night; I have upda eileen son by telephone of all these changes; I will keep him updated as in past. continue care. 8-18 remains septic and febrile; pressors; IV vanco/merrem; Obtructive uropathy, with hx suprapubic catheter. D/w - urology on case; nephrology consulted. continue vent support. D/w son Oni at [phone] again via telephone; Johnnie [phone] He understands that patient is quite ill and outcome may not be good. Messi Gotti MD, PhD.
--- NOTE | 2020-05-21 12:16 | Diagnostic Imaging Report ---
EXAMINATION: CHEST SINGLE (PORTABLE) INDICATION: Pneumothorax COMPARISON: Chest radiograph 05/20/2020 FINDINGS: LINES/TUBES:Support lines and tubes unchanged. LUNGS:The lungs are moderately inflated. Unchanged bilateral diffuse airspace opacities. PLEURA:Unchanged medial right pneumothorax with right chest tube in place. Left medial and apical pneumothorax measures up to 2 cm, slightly increased from the radiograph of 05/20/2020 MEDIASTINUM:The cardiomediastinal silhouette appears unchanged in size and shape. BONES/SOFT TISSUES:No acute osseous injury. Mild left neck subcutaneous emphysema. ABDOMEN:No free air under the diaphragm. IMPRESSION: Stable medial right pneumothorax with right chest tube in place. Mild interval increase of left medial and apical pneumothorax which measures up to 2 cm. Signed by: Jericho Martinez MD on 05/21/2020 12:13 PM
--- NOTE | 2020-05-21 12:18 | Progress Note ---
DATE: SUBJECTIVE: The patient is sedated, intubated, paralyzed; on Nimbex. Hypoxia has improved. The patient is on FiO2 of 80%. Tidal volume of 420, PEEP is 7. Right-sided chest tube was placed last night for right-sided pneumothorax. He is intubated. PHYSICAL EXAMINATION: VITAL SIGNS: Temperature 100.1, pulse of 96, blood pressure 89/57; on Levophed. T-max of 102.3. HEENT: Head is atraumatic, normocephalic, intubated. CHEST: Crackles bilaterally. HEART: S1, S2 audible. ABDOMEN: Soft. The patient has a small Canseco catheter. EXTREMITIES: No pedal edema. LABORATORY DATA: Chest x-ray; there is no chest x-ray for this morning. White cell count of 24,000, hemoglobin 12.3, platelets 203. Chemistry; sodium 131, potassium 5.0, chloride 102, bicarb 19, BUN 38, creatinine 1.72. ASSESSMENT AND PLAN: Johnnie Raines is a 64-year-old male with acute hypoxic respiratory failure, severe COVID pneumonia, intubated, now having persistent fever with white cell count being 27,000. Current problems: 1. Acute COVID pneumonia, possible superimposed acute pneumonia. Questionable fungal infection as persistent fever despite antibiotics. I will discuss the case with Dr. Allen, and possibly the patient may need to be on antifungal micafungin. 2. Acute kidney injury. We will consult Nephrology, it could be postobstructive as the patient has very small Canseco catheter. I will consult Nephrology, start the patient on bicarbonate drip. Vent setting reviewed. I will check ABG. We will consider stopping the Nimbex and see the patient can be ventilated just with sedation. 3. We will repeat a chest x-ray and ABG. 4. We will start the patient on tube feeds and start the patient on heparin subcutaneous 5000 units b.i.d. for deep venous thrombosis prophylaxis. MD HOMERO Paz/JASMINA /[id number]
--- NOTE | 2020-05-21 12:36 | NUR ---
Nutrition Intervention Note RD Recommendation(s) for Physician: - TF Rec's: Recommend initiating TF of Pivot 1.5 at 10 ml/hr. When hemodynamically stable, advance TF by 10 ml q 4-6 hrs to goal rate of 45 ml/hr (to provide 1620 kcal and 101 gm protein). Pivot 1.5 is not listed in the system formulary, please add comment to substitute Pivot 1.5 in order - Water flushes per MD. - If pt requires prone positioning, pt may be fed at goal rate placed in reverse Trendelenburg with HOB at 10 to 25 degrees. Plan of Care: RD following, TF rec's. monitoring for tolerance and adequacy Nutrition reason for involvement: follow up RD Assessment: 05/21. Pt re-evaluation per new intubation. Pt required intubation yesterday 2/2 worsening respiratory status. Pt remains intubated and sedated on vent, currently on Nimbex as well. Currently on 1 high dose pressor. Pt with pneumothorax, R sided chest tube placed last night. Pt with LUIS per MD notes. Chart reviewed. TF rec's provided. Will continue to monitor. 05/20: Follow up. Pt remains in IMCU, currently on high-flow O2 and on rebreather. Pt currently on low dose Levophed and on Precedex, due to anxiety. Pt eating 75-100% of meals, pt with diarrhea- on Questran and pepto bismol. Chart reviewed. Will continue to monitor. (05/13/20) Chart reviewed. Labs and meds reviewed. Pt is a 64 year old male admitted with COVID19, pneumonia, and hypoxia. Unable to enter room due to isolation precautions. No reports of weight loss per chart. It is recorded that pt consumed 75% of meals yesterday and 25-50% of breakfast and lunch today. If pt consumes <50% of meals, offer Ensure compact. Will continue to monitor. Primary Diagnose(s): COVID19, pneumonia, and hypoxia PMH: HTN GI: LBM 05/20- diarrhea Skin: no PU Labs: 05/21: Na 131, k 5, BUN 38, Cr 1.72, Gluc 110, Ca 7.9 05/20: Na 128, K 4.7, BUN 28, Cr 1.18, Gluc 74 Meds: vitamin C, zinc sulfate, colace, questran, pepto bismol, pepcid IV/Drips: Levophed at 22 mcg/min, Nimbex drip, Versed drip, Fentanyl drip Ht: 66 in Wt: 205 lb BMI: 33.1 kg/m2 IBW:142 lb Malnutrition Evaluation (05/21/20) Pt does not meet criteria for malnutrition at this time. PO intake/adequacy: none- meeting needs per current intake Wt loss: none- no wt loss reported on admit, questionable wt changes since admit noted. Fat loss: none- unable to complete NFPE 2/2 current isolation protocol, adequate fat stores indicated per BMI Edema: BELEN Functional status: BELEN Nutrition Prescription (Diet Order): NPO on vent Estimated Nutritional Needs: Calories: 8790-6331 (22-25kcal/kg/d) Weight used: IBW Protein: 97-129 (1.5-2g/kg/d) Weight used: IBW Diet Adequacy: not meeting calorie needs, not meeting protein needs Tolerance: tolerance pending- TF Diet Education Needs Assessment: Diet education not indicated. Nutrition Care Level: Moderate Nutrition Diagnosis: Inadequate energy and protein intake related to intubation as evidenced by requiring EN on vent. Goal: Patient will meet 75-100% of estimated needs by follow up Progress: N/A Interventions: -EN Composition, Rate, Route, IVF, Prescription medications, Recommended Modifications, Collaboration with other providers Monitoring/Evaluation: -Total energy intake, Total protein intake, formula/solution, medications, Weight change Signed: April Ibarra RD, LD, [facility]
[2020-05-21] MEDS: SODIUM BICARBONATE 8.4% SYRING 150 ML in DEXTROSE 5% 1,000 ML IV SCH (12:47)
[2020-05-21] MEDS: MICAFUNGIN SODIUM 100 ML IV SCH (12:54)
[2020-05-21 15:56] LABS: ABG PCO2 53 mmHg (35-45); ABG PH 7.22 (7.35-7.45)
[2020-05-21 15:57] LABS: ABG HCO3 22 mmol/L (22-26); ABG PO2 145 mmHg (80-105); ABG TCO2 23
[2020-05-21 19:08] LABS: BILIRUBIN,URINE NEGATIVE (NEGATIVE); CLARITY,URINE CLOUDY (CLEAR); COLOR,URINE YELLOW (YELLOW); KETONES,URINE 1+ (NEGATIVE); LEUKOCYTE ESTERASE ,URINE NEGATIVE (NEGATIVE); NITRITE,URINE NEGATIVE (NEGATIVE); PROTEIN,URINE DIPSTICK NEGATIVE (NEGATIVE); URINE UROBILINOGEN 0.2 mg/dL (0.2 - 1)
[2020-05-21 19:13] LABS: BACTERIA,URINE MANY /HPF; EPITHELIAL CELLS,URINE FEW /LPF; RBC,URINE >50 /HPF (0-5)
[2020-05-21 19:16] LABS: OTHER CRYSTALS,URINE PRESENT
[2020-05-21 19:21] LABS: CREATININE,URINE RANDOM 97.01 mg/dL (63-166); TOTAL PROTEIN, URINE 49.7 mg/dL (1-14)
[2020-05-22] VITALS (25 sets, daily range): BP systolic 88–128; BP diastolic 48–70
[2020-05-22] MEDS: NOREPINEPHRINE 8 MG/D5W 250 ML 250 ML IV PRN ×2 (00:30→09:07)
[2020-05-22] MEDS: MIDAZOLAM HCL 5MG/ML 10ML VIAL 100 ML IV PRN ×3 (01:49→16:47)
[2020-05-22] MEDS: MEROPENEM 1GM 100 ML IV SCH ×3 (01:49→19:10)
[2020-05-22 05:18] LABS: BASOPHILS % 0.1 % (0.0-1.0); EOSINOPHILS # (AUTO) 0.2 (0.0-0.4); EOSINOPHILS % 1.1 % (0.0-6.0); HEMATOCRIT 30.5 % (38.2-49.6); LYMPHOCYTES # (AUTO) 0.8 (1.0-3.2); LYMPHOCYTES % 4.9 % (18.0-39.1); MEAN CORPUSCULAR HEMOGLOBIN 30.2 pg (28-32); MEAN CORPUSCULAR HGB CONC 32.8 g/dL (31-35); MEAN CORPUSCULAR VOLUME 92.1 fL (81-99); MONOCYTES # (AUTO) 0.5 (0.2-0.8); MONOCYTES % 3.2 % (4.4-11.3); NEUTROPHILS # (AUTO) 14.1 (2.1-6.9); PLATELET COUNT 132 x10e3/uL (140-360); RED BLOOD COUNT 3.31 x10e6/uL (4.3-5.7); RED CELL DISTRIBUTION WIDTH 14.6 % (11.7-14.4); RETICULOCYTE % 1.9 % (0.8-2.2)
[2020-05-22 05:33] LABS: ALBUMIN 1.5 g/dL (3.5-5.0); ALBUMIN/GLOBULIN RATIO 0.4 (0.8-2.0); ANION GAP 9.1 mmol/L (8-16); CALCIUM 7.4 mg/dL (8.4-10.2); CREATININE, SERUM 1.21 mg/dL (0.72-1.25); POTASSIUM 4.1 mmol/L (3.5-5.1)
[2020-05-22] MEDS: SODIUM BICARBONATE 8.4% SYRING 150 ML in DEXTROSE 5% 1,000 ML IV SCH (05:33)
[2020-05-22] MEDS: FENTANYL 2000MCG/NS 250 250 ML IV PRN ×2 (06:48→16:46)
--- NOTE | 2020-05-22 07:32 | Consultation ---
DATE OF CONSULTATION: 05/21/2020 Nephrology Consultation REASON FOR CONSULTATION: Acute kidney injury. HISTORY OF PRESENT ILLNESS: This is a 64-year-old male admitted on May 10 with COVID pneumonia. He had normal renal function at that time. Since then, he has had a complicated course in the ICU, being treated for both COVID and superimposed bacterial pneumonia. He had a right-sided pneumothorax leading to a chest tube placement. Over the past 36 hours or so, his urine output was noted to decline. Yesterday, a bladder scan revealed residual urine of about 500 mL. A Canseco catheter was unable to be placed even cystoscopically. His serum creatinine has risen to 1.72 with BUN of 38 and a bicarb of 19 this morning. He is on IV Levophed for blood pressure support. This consultation is requested to assist in managing his acute kidney injury. PAST MEDICAL HISTORY: As above. CURRENT MEDICATIONS: Reviewed in DEC. It looks like he was on hydrochlorothiazide prior to admission. FAMILY HISTORY: Not obtainable at this time. SOCIAL HISTORY: Not obtainable at this time. REVIEW OF SYSTEMS: Unobtainable from the patient, who is sedated, paralyzed and on the ventilator. PHYSICAL EXAMINATION: GENERAL: On respiratory support, paralyzed and sedated. VITAL SIGNS: Blood pressure 98/58, pulse 118 per minute, afebrile. FiO2 60%. HEENT: Atraumatic, normocephalic. Intubated. CHEST: Bilateral crackles. CARDIOVASCULAR: S1, S2. ABDOMEN: Soft, nondistended. Had a very small Canseco catheter in place. EXTREMITIES: No pedal edema or cyanosis. IMAGING DATA: Chest x-ray showed bilateral diffuse infiltrates. LABORATORY DATA: White count 23,000, hemoglobin 12.3. Sodium 131, potassium 5, bicarb 19, BUN and creatinine as noted above. IMPRESSION: 1. Acute kidney injury, probably acute tubular necrosis related to coronavirus disease pneumonia and sepsis. 2. Rule out obstructive uropathy in view of high urinary residuals and inability to place Canseco catheter. 3. Coronavirus disease-2019 pneumonia and apparent superimposed bacterial pneumonia, on IV antibiotics. Managed by ICU team. RECOMMENDATIONS: The patient is being placed on an IV sodium bicarbonate drip per ICU. We will monitor electrolytes and serum bicarbonate level. Check urinalysis and urine protein to creatinine ratio. I have ordered a renal ultrasound for tomorrow, to exclude obstruction and hydronephrosis. Avoid all known nephrotoxin medications such as aminoglycoside, antibiotics, IV iodine contrast as possible. We will follow patient and make recommendations as indicated. Thank you for asking me to see this patient in consultation. MD VALERIE Ramsay/JASMINA /[id number]
--- NOTE | 2020-05-22 08:20 | Diagnostic Imaging Report ---
TECHNIQUE: Frontal view of the chest. INDICATION: ^CHEST TUBE, SUBQ EMPHYSEMSA, COVID PNA ^[id number] ^[id number] COMPARISON: Prior day. DISCUSSION: Limited evaluation due to portable technique. Lines and hardware: Stable. Heart and mediastinum: Stable. Lungs and pleura: Interval mild improvement in diffuse airspace opacities. Negative for large pneumothorax or pleural effusion. Soft tissues and bones: No acute abnormality. IMPRESSION: Interval mild improvement in diffuse airspace opacities. Negative for pneumothorax. Stable support structures. Signed by: Michel Ortiz MD on 05/22/2020 8:16 AM
--- NOTE | 2020-05-22 08:37 | NUR ---
IM- progress note O/N see below ROS: no f/c/s/N/V/D/POP/cp/skin rash/confusion/vision changes v/s; revd PE tired appearing anicteric ns1s2 reduced bs soft nt nd no e/t skin dry flat affect labs/meds revd A/P: 64yoM Multifocal PNA- azithromycin/ceftriaxone/loratadine/ Acute resp failure- decadron; O2; check COVID 19 COVID19 infection and PNA Acute diarrhea- check C-diff and start flagyl FEver- iv abx Transaminitis- f/u Obesity - check hab1c/lipids BMI 33.2- as above Prop; lovenox; pepcid dispo: 8-6 Hba1c 5.3. COVID19 positive PNA; cont remdesivir and decadron and abx. 8-7 cont supportive care; Increased O2 needs; on NRBM; called , left voicemail. 8-8 cont supportive care; escalate as needed; remains on O2 support; not intubated; Called next of kin- left message again. 8-9 cont care; D/w son at [phone] ; remains stable on NRBM; Diarrhea- check C-diff; start flagyl; 8-10 supportive care; lung infiltrate worse? cont supportive care with NRBM. 8-11 continue decadron and NRBM. 8-12 remains stable on NRBM; LUIS- recheck at 4pm; d/c HCTZ. 8-13 renal fn improved and stable; cont resp support. remains on HiFLo; Called son- updated. 8-14 supportive care; more time for recovery; Left message for son. 8-15 continue supportive care; 8-16 doing ok; cont care; encouraged to sit up in bed when eating and start some exercises in bed. 8-17 Bleeding yesterday in stool and urine; blood per urology; fever and hypotension, worsened resp status, required intubation during night; I have upda eileen son by telephone of all these changes; I will keep him updated as in past. continue care. 8-18 remains septic and febrile; pressors; IV vanco/merrem; Obtructive uropathy, with hx suprapubic catheter. D/w - urology on case; nephrology consulted. continue vent support. D/w son Oni at [phone] again via telephone; Johnnie [phone] He understands that patient is quite ill and outcome may not be good. 8-19 febrile overnight; Staph and yeast species in sputum- on vanco and micafungin. Messi Gotti MD, PhD.
[2020-05-22] MEDS: ZINC SULFATE 220 MG CAP PO SCH (08:40)
[2020-05-22] MEDS: LORATADINE 10 MG TAB PO SCH (08:40)
[2020-05-22] MEDS: ASCORBIC ACID 500 MG TAB PO SCH (08:40)
[2020-05-22] MEDS: FAMOTIDINE 20 MG TAB PO SCH ×2 (08:40→19:10)
[2020-05-22] MEDS: BENZONATATE 100 MG CAP PO SCH ×2 (08:40→16:55)
--- NOTE | 2020-05-22 11:34 | Diagnostic Imaging Report ---
Renal ultrasound. History: Acute kidney injury. Concern for obstruction. Comparison: None. Discussion: Transverse and longitudinal images of the kidneys were obtained demonstrating normal renal sizes and echogenicities. There is no evidence of hydronephrosis, mass, or renal calculus. The right kidney measures 11 cm and the left kidney measures 11.2 cm in length. The urinary bladder is partially distended. There is no evidence of free fluid. IMPRESSION: Negative for hydronephrosis. Signed by: Michel Ortiz MD on 05/22/2020 11:31 AM
[2020-05-22] MEDS: VANCOMYCIN 1GM/NS 250 ML 250 ML IV SCH ×2 (11:44→23:14)
[2020-05-22 13:05] LABS: ABG HCO3 30 mmol/L (22-26); ABG PCO2 49 mmHg (35-45); ABG PO2 177 mmHg (80-105); ABG TCO2 31
[2020-05-22] MEDS: MICAFUNGIN SODIUM 100 ML IV SCH (13:50)
--- NOTE | 2020-05-22 14:23 | NUR ---
PT HAS INCREASED SWELLING IN NECK. RN CALLED MD LAL AND DISCUSSED FINDINGS. DUE TO SUBCUTANEOUS EMPHESIMA, MD KHAN ORDERED RN TO PT PT ON PEEP OF 2 TO SEE HOW HE WOULD TOLERATE. PT DID NOT TOLERATE AND SATURATION DECREASED TO 89%. RN INCREASED PEEP TO 5 AGAIN AND CALLED RT TO MAKE ADJUSTMENTS. MD LAL ORDERED A CT SCAN OF HIS NECK AND CHEST TO RULE OUT OTHER PROCESS. RN ALSO DISCUSSED WITH MD CHURCHILL AND HE ORDERED CT SCAN OF ABDOMEN AND PELVIS TO DO SIMULTANEOUSLY.
--- NOTE | 2020-05-22 14:26 | NUR ---
infectious disease progress note Patient seen and examined chart reviewed This is May 21, 2020 Patient has been seen by renal service notes was reviewed and discussed with the critical care. Patient remains intensive care intubated and sedated. his is a 64-year-old male admitted on May 10 with COVID pneumonia. He had normal renal function at that time. Since then, he has had a complicated course in the ICU, being treated for both COVID and superimposed bacterial pneumonia. He had a right-sided pneumothorax leading to a chest tube placement. Over the past 36 hours or so, his urine output was noted to decline. Yesterday, a bladder scan revealed residual urine of about 500 mL. A Canseco catheter was unable to be placed even cystoscopically. His serum creatinine has risen to 1.72 with BUN of 38 and a bicarb of 19 this morning. He is on IV Levophed for blood pressure support. This consultation is requested to assist in managing his acute kidney injury. PHYSICAL EXAMINATION:intubated and sedated GENERAL: On respiratory support, paralyzed and sedated. VITAL SIGNS: Blood pressure 98/58, pulse 118 per minute, afebrile. FiO2 60%. HEENT: Atraumatic, normocephalic. Intubated. CHEST: Bilateral crackles. CARDIOVASCULAR: S1, S2. ABDOMEN: Soft, nondistended. Had a very small Canseco catheter in place. EXTREMITIES: No pedal edema or cyanosis. IMAGING DATA: Chest x-ray showed bilateral diffuse infiltrates. LABORATORY DATA: White count 23,000, hemoglobin 12.3. Sodium 131, potassium 5, bicarb 19, BUN and creatinine as noted above. IMPRESSION: covid 19 respiratory failure Superimposed bacterial pneumonia 1. Acute kidney injury, probably acute tubular necrosis related to coronavirus disease pneumonia and sepsis. 2. Rule out obstructive uropathy in view of high urinary residuals and inability to place Canseco catheter. 3. Coronavirus disease-2019 pneumonia and apparent superimposed bacterial continue with plan of antibiotic as ordered with cultures will follow
[2020-05-22] MEDS: CISATRACURIUM BESYLATE 100 MG in SODIUM CHLORIDE 0.9% 100 ML 100 ML IV SCH (16:56)
--- NOTE | 2020-05-22 16:56 | Diagnostic Imaging Report ---
CT of the chest, abdomen, and pelvis, without contrast. History: ^INCREASED SWELLING IN NECK ^[id number] ^1554 Comparison: None available. Technique: CT of the chest, abdomen and pelvis without intravenous contrast and WITHOUT oral contrast. Dose modulation, iterative reconstruction, and/or weight-based adjustment of the mA/kV was utilized to reduce the radiation dose to as low as reasonably achievable. ORAL CONTRAST: None RADIATION DOSE: Total DLP: 1030 mGy*cm COMPLICATIONS: None Discussion: Limited evaluation due to streak artifact from patient's arms as there unable to be raised above their head. Limited evaluation due to lack of IV contrast. LINES/ TUBES: Endotracheal tube is identified with tip terminating above the kris. Left internal jugular central venous catheter is noted with tip terminating at the cavoatrial junction. Enteric tube is seen coursing inferiorly and terminating within the distal gastric body/antrum. Temperature probe is identified within the urinary bladder. Right anterior approach apical chest tube is noted. Tip and sidehole are within the pleural space. LUNGS AND AIRWAYS: There are diffuse bilateral groundglass and patchy opacities. Left basilar atelectasis is noted. Trace right anterior pneumothorax is noted. Within the anterior right pleural space there is a 1.6 cm linear density (axial images 27 through 34 and lateral images 37 through 39), of indeterminate etiology. HEART AND MEDIASTINUM: The thyroid gland is normal. Multiple enlarged mediastinal and hilar lymph nodes are noted. No suspicious axillary lymphadenopathy. The heart is normal in size.. There is no pericardial effusion. Pneumomediastinum is noted. HEPATOBILIARY: No focal hepatic lesions. Gallbladder contains a few dependent gallstones and a questionable wall calcification versus adherent gallstone. No biliary ductal dilatation. Common bile measures up to 7 mm, within normal limits for patient's age. SPLEEN: No splenomegaly. PANCREAS: No focal masses or ductal dilatation. ADRENALS: No adrenal nodules. KIDNEYS/URETERS: Negative for renal stone or hydronephrosis. Negative for perinephric fluid collection. Ureters are not dilated.. PELVIC ORGANS/BLADDER: Urinary bladder is moderately distended with an indwelling temperature probe and a single foci of air, likely related to catheterization. Prostate is within normal limits for size. PERITONEUM/RETROPERITONEUM: Negative for gross pneumoperitoneum. Air is identified within the anterior abdominal wall tracking inferiorly from the chest along the midline. LYMPH NODES: No intra-abdominal lymphadenopathy. VESSELS: Negative for abdominal aortic aneurysm. GI TRACT: Bowel loops are suboptimally evaluated. Small amount of contrast is identified within the colon from prior examination. No bowel traction is noted. No surrounding inflammatory changes are identified. BONES AND SOFT TISSUES: Diffuse subcutaneous emphysema is identified throughout the anterior chest, base of the neck extending into the posterior paraspinal musculature and along the pectoralis muscles. It extends inferiorly within the soft tissues and abdominal wall. Negative for acute osseous abnormality. Moderate multilevel degenerative changes of the lower thoracic and lumbar spine are noted. IMPRESSION: Limited evaluation as described above. 1. Diffuse groundglass and patchy airspace opacities are noted throughout the lungs along with left basilar atelectasis. Findings are consistent with Covid pneumonia. Reactive mediastinal and hilar adenopathy is noted. 2. Severe subcutaneous emphysema throughout the base of the neck, chest and extending into the anterior abdominal wall musculature. Diffuse pneumomediastinum is noted. Right apical chest tube is identified with tip and sidehole within the pleural space. Small residual pneumothorax is noted anteriorly Findings may relate to air leak or barotrauma. 3. Linear 1.6 cm density within the anterior pleural space is of indeterminant etiology and may relate to pleural calcification. Correlate with any recent instrumentation to exclude foreign body. 4. Cholelithiasis. Questionable calcified adherent gallstone versus wall calcification anteriorly. Findings can be further evaluated with ultrasound. No biliary dilatation is identified. 5. Negative for intra-abdominal fluid collection or evidence of inflammatory change. Signed by: Michel Ortiz MD on 05/22/2020 4:52 PM
--- NOTE | 2020-05-22 17:15 | NUR ---
HEMATOLOGY/ONCOLOGY PROGRESS NOTE: Requesting Physician: Dr. Messi Gotti Consulting Physician: Dr. David Salvador, Tia Perdomo PA-C CHIEF COMPLAINT: COVID19 PNA HIStoRY OF PRESENT ILLNESS: Events noted. Discussed with Pulmonary. REVIEW OF SYSTEMS: 14 point ROS unable to obtain secondary to patient intubated/sedated. COVID19 ICU. PHYSICAL EXAM: Vitals: Reviewed as per EMR. Temp: 98.5degF BP 106/54 PE not performed due to COVID-19 contact precautions. LABORATORY/RADIOLOGY DATA: Reviewed per EMR. ASSESSMENT AND PLAN: Mr. Raines is a 64 year old male with past medical history of obesity and hypertension who was admitted on 05/08/2020 for dyspnea and cough with positive COVID19. During patient hospitalization, his respiratory status worsening and eventually required intubation on 05/20/2020. Patient has been on IV antibiotics during his stay as there is concern for super imposed bacterial infection. Patients CXR has progressively worsened during his stay with most notable development right pneumothorax requiring chest tube placement, small left apical pneumothorax, and subcutaneous emphysema shown on CXR from 05/20/2020. Patient has been on full dose Lovenox 1mg/kg BID since 05/14/2020. Due to intermittent bleeding episodes most notably from blood catheter and chest tube insertion site yesterday Lovenox has been stopped and HIT panel has been ordered. Hematology/Oncology has been consulted to assist with management. 1. COVID-19/aspiration PNA: In the COVID ICU, pharmacologically sedated intubated. Sputum cultures with staph and yeast species. Patient on Zinc, Vit C, and broad spectrum IV antibiotics and antifungals with improving leukocytosis. Managed per ICU/primary team, ID, and Pulmonary on board. 2. Anemia: Acute likely secondary to bleeding. Bleeding improved. Appears multifactorial with anemia of chronic disease and iron deficiency anemia however TIBC is likely low and ferritin is likely elevated as APR secondary to underlying infection/inflammation. Hold off on IV Iron for now. Hemoglobin trending down. Noted FOBT positive on 05/19/2020. Monitor closely for now. 3. Bleeding: Intermittent from blood/chest tube site per nursing staff. HIT negative. Does not appear DIC with elevated fibrinogen level. Improved. Monitor closely for now. 4. Renal failure: On sodium bicarb drip. Creatinine improving. Managed per Nephrology on board. 5. Anticoagulation: Patient is at increased risk for microthrombotic event given COVID19 and worsening respiratory status requiring intubation. Patient kid alannah function now improving per #4. D-dimer trending up. Patient started on heparin 5000u sq q12h with close monitoring for bleeding, discussed with Pulmonary on board. Patient will likely benefit from full dose anticoagulation if no more bleeding and platelets are stable. Monitor closely for now. 6. Hypotension: On Levophed. Recommend holding opioid medication for SBP < 90. Managed per primary/ICU team. 7. Neck edema: CT C/A/P with subcutaneous emphysema and groundglass opacities consistent with COVID19. No acute intraabdominal process. Managed per pulmonary on board. 8. GOC: Unfortunately, patient prognosis appears guarded at this time. Above plan discussed with Dr. David Salvador. Thank you for the consult. I will be available. Please call with questions.
--- NOTE | 2020-05-22 17:18 | NUR ---
HemOnc addendum 05/22/2020 Thrombocytopenia: Now with drop from 203 to 132. Patient has had transient drop in counts in the past with recovery. HIT and DIC panel negative as mentioned in full note. Monitor as we restart anticoagulation. Thank you, Tia Perdomo PA-C
[2020-05-22] MEDS ORDERED: DEXTROSE 5%/0.9% SOD CHL 1,000 ML IV ONE (17:30)
--- NOTE | 2020-05-22 17:41 | Diagnostic Imaging Report ---
EXAMINATION: CT of the neck without contrast HISTORY: Worsening neck swelling and subcutaneous emphysema covid 19 pneumonia, infection COMPARISON: None TECHNIQUE: Multidetector helical axial images were obtained from the sternal notch through the skull base without intravenous contrast. Images were reconstructed using soft tissue and bone algorithms and were viewed in multiplanar format. Dose modulation, iterative reconstruction, and/or weight based adjustment of the mA/kV was utilized to reduce the radiation dose to as low as reasonably achievable. FINDINGS: Soft tissues: Extensive subcutaneous emphysema throughout the entire neck, lower face and upper chest which accounts for neck swelling. Nodes: No lymphadenopathy. Sinuses: Imaged portions unremarkable. Oral cavity: Unremarkable. Salivary glands: Parotid and submandibular glands unremarkable. Pharynx: Unremarkable. Larynx: Endotracheal tube, minimal retained secretions above the inflated balloon. Thyroid gland: Unremarkable. Upper esophagus: Unremarkable. Blood vessels: Cannot be evaluated due to the lack of IV contrast. Bones: Unremarkable. Mastoid air cells: Partial opacification of the right greater than left vascular cells and middle ears. Lung apices: Partially visualized multifocal pneumonia, small right apical pneumothorax and pneumomediastinum, likely related to air leak or barotrauma. Additional findings: Nasogastric tube in place. Left central venous line. IMPRESSION: 1. Extensive subcutaneous emphysema dissecting the deep and superficial fascial planes of the neck, which accounts for neck swelling. Otherwise no neck mass or fluid collections. 2. Partially visualized multifocal pneumonia, please see dictation of chest CT performed on the same day for further details. Signed by: Dr. Viv Encinas M.D. on 05/22/2020 5:37 PM
--- NOTE | 2020-05-22 20:13 | Progress Note ---
DATE: SUBJECTIVE: The patient is still on mechanical ventilator. FiO2 is down to 60%. Hypoxia has improved. However, the patient's subcu emphysema still getting worse. Micafungin was started. PHYSICAL EXAMINATION: GENERAL: The patient is sedated and intubated, off paralytics. VITAL SIGNS: Temperature 98.5, pulse of 101, blood pressure 106/54, O2 saturation is 96%. The patient is on FiO2 of 60%. PEEP of 6. HEENT: Head is atraumatic, normocephalic. NECK: Supple. Severe subcu emphysema around the neck. CHEST: Decreased air entry bilaterally. HEART: S1 and S2 audible. ABDOMEN: Soft. EXTREMITIES: Pedal edema. NEUROLOGIC: He is sedated and intubated. LABORATORY DATA: [place] [address], hemoglobin 10.0, platelets 132. Chemistry, creatinine is down to 1.21. Sodium 132, potassium 4.1, bicarb is 27. Hep panel is negative. CT of the chest, neck, and abdomen and pelvis was done showing severe subcu emphysema and pulmonary disease due to COVID-19 pneumonia. ASSESSMENT: Mr. Raines is a 64-year-old male with severe coronavirus disease 2019 pneumonia. The patient has an acute hypoxic respiratory failure with severe pneumomediastinum and subcu emphysema. The right-sided chest tube was placed, but there was no pneumothorax on the left side. Current problems: 1. Acute hypoxic respiratory failure. 2. Coronavirus disease 2019 pneumonia. 3. Superimposed bacterial pneumonia, possibly fungal infection. 4. Mild thrombocytopenia. 5. Obesity. PLAN: 1. Continue the patient on IV micafungin, vancomycin, Gram stain is positive for Staph. 2. The patient is currently on bicarb infusion for renal failure, which has improved. Creatinine is down to 1.21 and bicarbonate is 27. I will discontinue the bicarb infusion. Tube feeds have been started. The patient's meds were discontinued. Critical care time spent 50 minutes. Thank you for this consult. MD HOMERO Paz/JASMINA /[id number]
--- NOTE | 2020-05-22 20:18 | Progress Note ---
DATE: 05/22/2020 Nephrology Progress Note SUBJECTIVE: The patient remains on respiratory support. However, urine output appears to be picking up. OBJECTIVE: VITAL SIGNS: Blood pressure 106/54, pulse 101, afebrile, pulse oximetry 96%, on IV norepinephrine for blood pressure support. RESPIRATORY: Bilateral air entry, right-sided chest tube is in place. CARDIOVASCULAR: S1, S2. ABDOMEN: Soft, nondistended. EXTREMITIES: Without pitting edema. NEUROLOGICAL: Sedated, on respirator. LABORATORY DATA: BUN and creatinine are both improved at 23 and 1.21 respectively. Sodium 132, potassium 4.1, bicarb 27. Serum albumin 1.5. Urinalysis shows negative protein, greater than 50 red cells and 11 to 20 white cells, many bacteria on a catheterized specimen. Renal ultrasound shows no hydronephrosis. IMPRESSION: 1. Acute kidney injury, now appears more likely prerenal, since it is resolving very promptly. 2. The patient has a small, 5-Cymraes Canseco catheter, which appears to be draining. 3. Continue to bladder scan every shift to prevent urinary retention. 4. Coronavirus disease/pneumonia, treatment per ICU team. 5. Continue to check renal function daily for now. Eduard Kaye MD [facility]/MODL /[id number]
[2020-05-22] MEDS: HEPARIN SOD (PORCINE) 5,000 UNIT/ML VIAL SC SCH (20:37)
[2020-05-23] VITALS (22 sets, daily range): BP systolic 81–109; BP diastolic 47–82
[2020-05-23] MEDS: MIDAZOLAM HCL 5MG/ML 10ML VIAL 100 ML IV PRN ×5 (01:06→20:30)
[2020-05-23] MEDS: ACETAMINOPHEN 325 MG TAB PO PRN ×2 (01:54→10:53)
[2020-05-23] MEDS: MEROPENEM 1GM 100 ML IV SCH ×2 (01:54→08:57)
[2020-05-23] MEDS: FENTANYL 2000MCG/NS 250 250 ML IV PRN ×3 (02:14→17:55)
[2020-05-23] MEDS: NOREPINEPHRINE 8 MG/D5W 250 ML 250 ML IV PRN ×2 (05:51→18:13)
[2020-05-23 06:13] LABS: BASOPHILS % 0.1 % (0.0-1.0); EOSINOPHILS # (AUTO) 0.2 (0.0-0.4); EOSINOPHILS % 1.9 % (0.0-6.0); HEMATOCRIT 31.6 % (38.2-49.6); HEMOGLOBIN 10.2 g/dL (14.0-18.0); LYMPHOCYTES # (AUTO) 0.8 (1.0-3.2); LYMPHOCYTES % 6.9 % (18.0-39.1); MEAN CORPUSCULAR HEMOGLOBIN 29.1 pg (28-32); MEAN CORPUSCULAR HGB CONC 32.3 g/dL (31-35); MONOCYTES # (AUTO) 0.4 (0.2-0.8); MONOCYTES % 3.8 % (4.4-11.3); NEUTROPHILS # (AUTO) 9.9 (2.1-6.9); NEUTROPHILS % 86.8 % (38.7-80.0); PLATELET COUNT 120 x10e3/uL (140-360); RED BLOOD COUNT 3.51 x10e6/uL (4.3-5.7); RED CELL DISTRIBUTION WIDTH 14.5 % (11.7-14.4)
[2020-05-23 06:48] LABS: ANION GAP 9.7 mmol/L (8-16); BLOOD UREA NITROGEN 11 mg/dL (7-26); BUN/CREATININE RATIO 12 (6-25); CALCIUM 7.3 mg/dL (8.4-10.2); CARBON DIOXIDE 31 mmol/L (22-29); CHLORIDE 98 mmol/L (98-107); CREATININE, SERUM 0.92 mg/dL (0.72-1.25); EST GLOMERULAR FILTRATION RATE > 60 ML/MIN (60-); GLUCOSE 124 mg/dL (74-118); POTASSIUM 3.7 mmol/L (3.5-5.1); SODIUM 135 mmol/L (136-145)
--- NOTE | 2020-05-23 07:19 | NUR ---
IM- progress note O/N see below ROS: no f/c/s/N/V/D/POP/cp/skin rash/confusion/vision changes v/s; revd PE tired appearing anicteric ns1s2 reduced bs soft nt nd no e/t skin dry flat affect labs/meds revd A/P: 64yoM Multifocal PNA- azithromycin/ceftriaxone/loratadine/ Acute resp failure- decadron; O2; check COVID 19 COVID19 infection and PNA Acute diarrhea- check C-diff and start flagyl FEver- iv abx Transaminitis- f/u Obesity - check hab1c/lipids BMI 33.2- as above Prop; lovenox; pepcid dispo: 8-6 Hba1c 5.3. COVID19 positive PNA; cont remdesivir and decadron and abx. 8-7 cont supportive care; Increased O2 needs; on NRBM; called , left voicemail. 8-8 cont supportive care; escalate as needed; remains on O2 support; not intubated; Called next of kin- left message again. 8-9 cont care; D/w son at [phone] ; remains stable on NRBM; Diarrhea- check C-diff; start flagyl; 8-10 supportive care; lung infiltrate worse? cont supportive care with NRBM. 8-11 continue decadron and NRBM. 8-12 remains stable on NRBM; LUIS- recheck at 4pm; d/c HCTZ. 8-13 renal fn improved and stable; cont resp support. remains on HiFLo; Called son- updated. 8-14 supportive care; more time for recovery; Left message for son. 8-15 continue supportive care; 8-16 doing ok; cont care; encouraged to sit up in bed when eating and start some exercises in bed. 8-17 Bleeding yesterday in stool and urine; blood per urology; fever and hypotension, worsened resp status, required intubation during night; I have upda eileen son by telephone of all these changes; I will keep him updated as in past. continue care. 8-18 remains septic and febrile; pressors; IV vanco/merrem; Obtructive uropathy, with hx suprapubic catheter. D/w - urology on case; nephrology consulted. continue vent support. D/w son Oni at [phone] again via telephone; Johnnie [phone] He understands that patient is quite ill and outcome may not be good. 8-19 febrile overnight; Staph and yeast species in sputum- on vanco and micafungin. 8-20 Paralytic applied; Pneumomediastinum; remains on broad spec abx and antifungal; HIT ab negative; Heparin on board BID. Messi Gotti MD, PhD.
[2020-05-23] MEDS ORDERED: VECURONIUM BROMIDE FOR INJ 20 MG VIAL ONE (07:45)
[2020-05-23] MEDS ORDERED: VECURONIUM BROMIDE FOR INJ 20 MG VIAL IV ONE (08:00)
--- NOTE | 2020-05-23 08:55 | Diagnostic Imaging Report ---
TECHNIQUE: Frontal view of the chest. INDICATION: ^desaturation COMPARISON: Prior day. DISCUSSION: Limited evaluation due to portable technique. Lines and hardware: Stable. Heart and mediastinum: Stable. Lungs and pleura: There is interval significant worsening of interstitial opacities in the right lung. There is mild worsening of interstitial opacities in the left lung. Negative for large pneumothorax or pleural effusion. Stable consolidative opacities at the left lung base. Soft tissues and bones: Similar appearance of diffuse subcutaneous emphysema of the chest and base of the neck. IMPRESSION: 1. Interval worsening of diffuse interstitial airspace opacities, most significantly within the right lung. Stable left basilar consolidative opacities. Negative for large pneumothorax or effusion. 2. Stable support structures. 3. Stable subcutaneous emphysema. Signed by: Michel Ortiz MD on 05/23/2020 8:52 AM
[2020-05-23] MEDS: DOCUSATE SODIUM 100 MG CAP PO SCH (08:57)
[2020-05-23] MEDS: ASCORBIC ACID 500 MG TAB PO SCH (08:57)
[2020-05-23] MEDS: ZINC SULFATE 220 MG CAP PO SCH (08:57)
[2020-05-23] MEDS: FAMOTIDINE 20 MG TAB PO SCH ×2 (08:57→17:23)
[2020-05-23] MEDS: HEPARIN SOD (PORCINE) 5,000 UNIT/ML VIAL SC SCH ×2 (09:52→21:08)
[2020-05-23] MEDS: VASOPRESSIN 60 UNIT in DEXTROSE 5% 50ML 57 ML IV SCH (10:51)
[2020-05-23] MEDS: VANCOMYCIN 1GM/NS 250 ML 250 ML IV SCH ×2 (10:52→21:09)
--- NOTE | 2020-05-23 11:21 | Progress Note ---
DATE: SUBJECTIVE: The patient is seen and examined in the COVID ICU. He was overbreathing the vent despite maximal fentanyl and versed. Vecuronium push was given. The patient is still hypoxic. FiO2 is increased to 100%. Chest x-ray is not much changed. PHYSICAL EXAMINATION: VITAL SIGNS: Temperature 100.8, pulse of 116, and blood pressure 101/70. CHEST: Crackles bilaterally. HEART: S1 and S2 audible. ABDOMEN: Soft. EXTREMITIES: No pedal edema. NEUROLOGICAL: He is sedated and intubated. LABORATORY DATA: Reviewed. White cell count is 11,000, hemoglobin 10.2, and platelets 120. Creatinine is 0.9 and sodium 135. Chest x-ray showing bilateral alveolar infiltrates, worse than before. MEDICATIONS: Reviewed. ASSESSMENT/PLAN: 1. Mr. Raines is a 64-year-old male with severe COVID-19 pneumonia. The patient is progressively getting worse, now on FiO2 of 80%. PEEP was 8. I will reduce the PEEP because of extensive subcutaneous emphysema. He has been hypoxic. We will repeat the ABG. 2. The patient has a 5-Frisian Canseco catheter and has difficulty urinating. We will discuss with Urology about suprapubic catheterization. The patient has a history of suprapubic catheter in the past. Infectious Disease mcneal, the patient will be continued on IV antibiotic. Dr. Allen is following the patient. The patient was started on heparin subcutaneous 5000 units b.i.d. for deep venous thrombosis prophylaxis. Platelets are on the lower side. We will closely follow. Overall, the patient's prognosis is poor and condition is getting worse. The patient's son has been updated by Dr. Gotti. I will call him today and update him about the condition. Critical care time spent 50 minutes. MD HOMERO Paz/JASMINA /[id number]
--- NOTE | 2020-05-23 11:25 | NUR ---
Electronics Technology Department Chair called pt's son, Johnnie ([phone]), to offer emotional/spiritual support. Pt's son states family received "good news yesterday and bad news today." Pt's son expressed disappointment from news received. However, pt's son states he still has "hope and jayro" for his dad. Electronics Technology Department Chair provided empathic listening and information on how to reach soda dialyzer, if needed. Normalized experience. Provided prayer. Will follow as able. KWADWO Blandon Spiritual Care Department O: [phone]
[2020-05-23] MEDS: CISATRACURIUM BESYLATE 200 MG in SODIUM CHLORIDE 0.9% 250ML 180 ML IV SCH ×2 (12:09→20:30)
[2020-05-23] MEDS: MICAFUNGIN SODIUM 100 ML IV SCH (12:41)
[2020-05-23] MEDS ORDERED: FLUCONAZOLE 200 MG/100 ML 100 ML IV SCH (17:00)
[2020-05-23] MEDS ORDERED: SODIUM CHLORIDE 0.9% 250ML 250 ML ONE (17:26)
--- NOTE | 2020-05-23 17:59 | NUR ---
PT HAS 5FR CATHETER IN PLACE. CATHETER NOT DRAINING WELL DESPITE BEING FLUSHED. MD KHAN AND MD CHURCHILL AWARE AND MANY ATTEMPTS WERE MADE TO REACH UROLOGIST REGUARDING PLACING SUPRAPUBIC CATHETER. PT HAD MULTIPLE DESATURATION EPISODES THROUGHOUT THE DAY AND MD KHAN WAS CONSIDERING PRONING- BUT PT UNABLE TO BE PRONED DUE TO INADEQUATE DRAINAGE OF BLADDER. UROLOGIST FINALLY CONTACTED BY MD CHURCHILL AND STATED THAT AT SOME POINT HE WOULD BE BY TO DO A CYSTOSCOPY. UROLOGIST HAS NOT SEEN PT OF 1800. 5 FR CATHETER STILL NOT DRAINING AND >250 OF URINE SHOWN ON BLADDER SCANNER. PT STILL IN SUPINE POSITION.
--- NOTE | 2020-05-23 17:59 | Progress Note ---
DATE: SUBJECTIVE: Mr. Raines remains in intensive care unit, intubated. He is running fever up to 101. Events noted. He does have a catheter, but it is not a Canseco catheter. PHYSICAL EXAMINATION: GENERAL: The patient is intubated and sedated. He is on 100%. HEENT: He is not icteric. NECK: Supple. CHEST: Crackles bilaterally. HEART: S1 and S2. ABDOMEN: Soft. Bowel sounds present. EXTREMITIES: No edema. SKIN: No rash. LABORATORY DATA: Reviewed. IMPRESSION: Respiratory failure. Fever. His sputum showed Staph aureus and yeast. He is currently on Micafungin, vancomycin, and meropenem. His chest CT showed diffuse ground-glass infiltrate, subcutaneous emphysema, and cholelithiasis. The patient remains extremely ill, concern about pneumonia. He is on vancomycin and we will change him to Diflucan and discontinue meropenem. He is still having fever. We will check his lipase and lactic acid. MD AQUILES [facility]mos/MODL /[id number]
--- NOTE | 2020-05-23 18:30 | Progress Note ---
DATE: 05/23/2020 Nephrology Follow Up Note SUBJECTIVE: Followup for acute kidney injury, now resolved. Overall, the patient is not doing well in terms of hypoxia from the COVID-19 pneumonia. Intake and output positive. Chest x-ray unchanged. OBJECTIVE: VITAL SIGNS: Blood pressure 101/70, pulse 110 per minute, and temperature 100.8. CHEST: Bilateral air entry to respirator breath. HEART: S1 and S2. ABDOMEN: Soft. EXTREMITIES: Mild pedal edema. NEUROLOGICAL: Sedated and intubated. LABORATORY DATA: BUN and creatinine remaining normal. Sodium up to 135, potassium 3.7, total calcium 7.3. IMPRESSION: 1. Acute kidney injury, staying resolved. 2. Mild hyponatremia, dilutional. Overall, stable. 3. COVID pneumonia with hypoxia. Treatment per COVID ICU Team. Eduard Kaye MD [facility]/MOD[facility] /[id number]
[2020-05-23 18:41] LABS: ABG HCO3 33 mmol/L (22-26); ABG PCO2 73 mmHg (35-45); ABG PH 7.26 (7.35-7.45); ABG PO2 66 mmHg (80-105); ABG TCO2 35
[2020-05-24] VITALS (14 sets, daily range): BP systolic 70–90; BP diastolic 32–73
[2020-05-24] MEDS: FENTANYL 2000MCG/NS 250 250 ML IV PRN (00:21)
[2020-05-24] MEDS: NOREPINEPHRINE 8 MG/D5W 250 ML 250 ML IV PRN ×2 (00:51→06:27)
[2020-05-24] MEDS: MIDAZOLAM HCL 5MG/ML 10ML VIAL 100 ML IV PRN ×2 (01:40→06:40)
[2020-05-24] MEDS: VASOPRESSIN 60 UNIT in DEXTROSE 5% 50ML 57 ML IV SCH (02:42)
[2020-05-24 05:02] LABS: BASOPHILS % 0.2 % (0.0-1.0); EOSINOPHILS # (AUTO) 0.1 (0.0-0.4); EOSINOPHILS % 0.9 % (0.0-6.0); HEMATOCRIT 33.7 % (38.2-49.6); HEMOGLOBIN 10.7 g/dL (14.0-18.0); LYMPHOCYTES # (AUTO) 1.7 (1.0-3.2); LYMPHOCYTES % 12.4 % (18.0-39.1); MEAN CORPUSCULAR HGB CONC 31.8 g/dL (31-35); MEAN CORPUSCULAR VOLUME 91.3 fL (81-99); MONOCYTES # (AUTO) 0.5 (0.2-0.8); MONOCYTES % 3.8 % (4.4-11.3); NEUTROPHILS # (AUTO) 11.1 (2.1-6.9); NEUTROPHILS % 81.7 % (38.7-80.0); PLATELET COUNT 144 x10e3/uL (140-360); RED BLOOD COUNT 3.69 x10e6/uL (4.3-5.7); RED CELL DISTRIBUTION WIDTH 14.8 % (11.7-14.4)
--- NOTE | 2020-05-24 07:00 | NUR ---
IM- progress note O/N see below ROS: no f/c/s/N/V/D/POP/cp/skin rash/confusion/vision changes v/s; revd PE tired appearing anicteric ns1s2 reduced bs soft nt nd no e/t skin dry flat affect labs/meds revd A/P: 64yoM Multifocal PNA- azithromycin/ceftriaxone/loratadine/ Acute resp failure- decadron; O2; check COVID 19 COVID19 infection and PNA Acute diarrhea- check C-diff and start flagyl FEver- iv abx Transaminitis- f/u Obesity - check hab1c/lipids BMI 33.2- as above Prop; lovenox; pepcid dispo: 8-6 Hba1c 5.3. COVID19 positive PNA; cont remdesivir and decadron and abx. 8-7 cont supportive care; Increased O2 needs; on NRBM; called , left voicemail. 8-8 cont supportive care; escalate as needed; remains on O2 support; not intubated; Called next of kin- left message again. 8-9 cont care; D/w son at [phone] ; remains stable on NRBM; Diarrhea- check C-diff; start flagyl; 8-10 supportive care; lung infiltrate worse? cont supportive care with NRBM. 8-11 continue decadron and NRBM. 8-12 remains stable on NRBM; LUIS- recheck at 4pm; d/c HCTZ. 8-13 renal fn improved and stable; cont resp support. remains on HiFLo; Called son- updated. 8-14 supportive care; more time for recovery; Left message for son. 8-15 continue supportive care; 8-16 doing ok; cont care; encouraged to sit up in bed when eating and start some exercises in bed. 8-17 Bleeding yesterday in stool and urine; blood per urology; fever and hypotension, worsened resp status, required intubation during night; I have upda eileen son by telephone of all these changes; I will keep him updated as in past. continue care. 8-18 remains septic and febrile; pressors; IV vanco/merrem; Obtructive uropathy, with hx suprapubic catheter. D/w - urology on case; nephrology consulted. continue vent support. D/w son Oni at [phone] again via telephone; Johnnie [phone] He understands that patient is quite ill and outcome may not be good. 8-19 febrile overnight; Staph and yeast species in sputum- on vanco and micafungin. 8-20 Paralytic applied; Pneumomediastinum; remains on broad spec abx and antifungal; HIT ab negative; Heparin on board BID. 8-21 Remains in septic shock- use pressors; continue antimicrobial per ID, changes made yesterday; cont vent support; Prognosis is poor; family aware. D/w Johnnie and updated on use of 2 pressors and poor prognosis. Messi Gotti MD, PhD.
[2020-05-24] MEDS ORDERED: CISATRACURIUM BESYLATE 200 MG in SODIUM CHLORIDE 0.9% 250ML 100 ML IV SCH (07:15)
[2020-05-24] MEDS: ASCORBIC ACID 500 MG TAB PO SCH (07:59)
[2020-05-24] MEDS: FAMOTIDINE 20 MG TAB PO SCH (07:59)
[2020-05-24] MEDS: ZINC SULFATE 220 MG CAP PO SCH (07:59)
[2020-05-24] MEDS: DOCUSATE SODIUM 100 MG CAP PO SCH (07:59)
[2020-05-24] MEDS: HEPARIN SOD (PORCINE) 5,000 UNIT/ML VIAL SC SCH (08:00)
[2020-05-24 09:32] LABS: ANION GAP 18.5 mmol/L (8-16); CALCIUM 7.5 mg/dL (8.4-10.2); CREATININE, SERUM 1.85 mg/dL (0.72-1.25); MAGNESIUM 2.2 MG/DL (1.3-2.1); PHOSPHORUS 3.3 MG/DL (2.3-4.7)
[2020-05-24 09:54] LABS: POTASSIUM 5.5 mmol/L (3.5-5.1)
[2020-05-24] MEDS ORDERED: PHENYLEPHRINE 10MG/ML VIAL 40 MG in DEXTROSE 5% 250ML 246 ML IV PRN (10:00)
[2020-05-24] MEDS ORDERED: SODIUM CHLORIDE 0.9% 1000ML 2,000 ML IV SCH ×2 (10:00→11:00)
[2020-05-24] MEDS ORDERED: SODIUM CHLORIDE 0.9% 1000ML 2,000 ML ONE (10:14)
[2020-05-24] MEDS ORDERED: SODIUM BICARBONATE 8.4% INJ 50 ML SYR IV ONE (10:15)
[2020-05-24] MEDS: VANCOMYCIN 1GM/NS 250 ML 250 ML IV SCH (11:30)
--- NOTE | 2020-05-24 11:44 | Diagnostic Imaging Report ---
EXAMINATION: CHEST SINGLE (PORTABLE) INDICATION: Pneumonia COMPARISON: Chest radiograph 05/23/2020 FINDINGS: LINES/TUBES:Support lines and tubes unchanged. LUNGS:The lungs are moderately inflated. Unchanged bilateral multifocal airspace opacities. PLEURA:No pleural effusion or pneumothorax. MEDIASTINUM:The cardiomediastinal silhouette appears normal in size and shape. BONES/SOFT TISSUES:No acute osseous injury. Unchanged subcutaneous soft tissue emphysema. ABDOMEN:No free air under the diaphragm. IMPRESSION: No significant interval change in bilateral multifocal airspace opacities consistent with multifocal pneumonia. Signed by: Jericho Martinez MD on 05/24/2020 11:40 AM
[2020-05-24] MEDS ORDERED: SODIUM BICARBONATE 8.4% SYRING 150 ML in DEXTROSE 5% 1,000 ML IV SCH (12:00)
[2020-05-24] MEDS ORDERED: DEXTROSE IV ONE (12:15)
[2020-05-24] MEDS ORDERED: SOD CHL IV ONE (12:15)
[2020-05-24] MEDS ORDERED: SODIUM BICARBONATE IV ONE (12:15)
--- NOTE | 2020-05-24 12:29 | Progress Note ---
DATE: SUBJECTIVE: The patient is deteriorating. Blood pressure has been on the lower side. He is already on Levophed and vasopressin. Phenylephrine will be added. He is on sedatives and he is paralyzed as well. PHYSICAL EXAMINATION: VITAL SIGNS: Temperature 100.2, pulse of 106, blood pressure 90/60, T-max of 101.7 and 101.0. The patient has nonstop fever. He has finished micafungin and meropenem. He is still on fluconazole. Urine output has reduced as well. CHEST: Crackles bilaterally. HEART: S1 and S2 audible. ABDOMEN: Soft. He has a small Canseco. EXTREMITIES: Pedal edema. NEUROLOGICAL: He is sedated and intubated. LABORATORY DATA: White count of 13,000, hemoglobin 10.7, and platelets 144. Chemistry; sodium 131, potassium 5.5, chloride 97, BUN 23, creatinine 1.85, was 0.92 yesterday. Blood gas; pH of 7.26, pCO2 of 73, and PO2 of 66. This was this morning and when FiO2 of 80%, PEEP of 5. Chest x-ray, there is no chest x-ray this morning. ASSESSMENT/PLAN: Mr. Raines is a 64-year-old male with severe COVID-19 infection, developing acute respiratory distress syndrome, respiratory failure, acute kidney injury and septic shock, possibility of superimposed pneumonia. PLAN: 1. Continue the patient on sedative and paralytics. 2. Vasopressors will be continued. I will add Joshua-Synephrine if the third vasopressor as needed. The patient is on tube feeds, which will be continued. 3. LUIS is worsening. Creatinine is now doubled. The patient has mild metabolic acidosis. I will start the patient on bicarbonate infusion. 4. Continue the patient on IV vancomycin and fluconazole. I will add meropenem and micafungin. I will restart meropenem and micafungin. The patient has finished 5 days of 8. The patient is on heparin subcutaneous for DVT prophylaxis. I had a detailed discussion with the patient's oldest son, Johnnie and explained to him the patient's condition is extremely poor and prognosis is overall poor. I will try to get arrangement to see if the family can come to see the patient. Plans were discussed with the RN taking care of the patient and RT as well. Critical care time spent 50 minutes. MD HOMERO Paz/JASMINA /[id number]
[2020-05-24] MEDS ORDERED: MEROPENEM 1GM 100 ML IV SCH (12:30)
--- NOTE | 2020-05-24 12:58 | NUR ---
experimental display builder visited pt sons , they expressed elevated grief through words and tears, experimental display builder provided anticipatory grief support , prayer and pastoral comfort and counseling . They expressed decreased agitation and become more calm .experimental display builder provided prayer support to patient virtually . The family expressed appreciation to experimental display builder support chaplain Brandie
[2020-05-24] MEDS ORDERED: VECURONIUM BROMIDE FOR INJ 20 MG VIAL ONE (13:08)
[2020-05-24] MEDS ORDERED: EPINEPHRINE HCL 1:1000 1ML 4 MG in DEXTROSE 5% 250ML 250 ML IV PRN (13:30)
--- NOTE | 2020-05-24 13:48 | NUR ---
infectious disease progress note this patient seen and examined and chart reviewed remained intensive care unit he is extremely critical I have met with all physicians I also met with the family on 2 occasions his sons are in the hospital she could not see the patient because he is critically ill in the covid unit The patient is deteriorating. Blood pressure has been on the lower side. He is already on Levophed and vasopressin. Phenylephrine will be added. He is on sedatives and he is paralyzed as well. PHYSICAL EXAMINATION: VITAL SIGNS: Temperature 100.2, pulse of 106, blood pressure 90/60, T-max of 101.7 and 101.0. The patient has nonstop fever. He has finished micafungin and meropenem. He is still on fluconazole. Urine output has reduced as well. CHEST: Crackles bilaterally. HEART: S1 and S2 audible. ABDOMEN: Soft. He has a small Canseco. EXTREMITIES: Pedal edema. NEUROLOGICAL: He is sedated and intubated. LABORATORY DATA: White count of 13,000, hemoglobin 10.7, and platelets 144. Chemistry; sodium 131, potassium 5.5, chloride 97, BUN 23, creatinine 1.85, was 0.92 yesterday. Blood gas; pH of 7.26, pCO2 of 73, and PO2 of 66. This was this morning and when FiO2 of 80%, PEEP of 5. Chest x-ray, there is no chest x-ray this morning. ASSESSMENT/PLAN: Mr. Raines is a 64-year-old male with severe COVID-19 infection, developing acute respiratory distress syndrome, respiratory failure, acute kidney injury and septic shock, possibility of superimposed pneumonia. The patient was seen on a couple of visits he was coded please refer to the notes. Family were kept up to date his prognosis is extremely poor time spent 45 minutes
[2020-05-24] MEDS ORDERED: HYDROCORTISONE SOD SUCCINATE 100 MG VIAL IV SCH (14:00)
--- NOTE | 2020-05-24 14:14 | Progress Note ---
DATE: 05/24/2020 Nephrology Followup Note SUBJECTIVE: The patient is in Trendelenburg position secondary to hypotension. He is on maximum doses of 3 IV vasopressors. Urine output is maintained so far. OBJECTIVE: VITAL SIGNS: Blood pressure 81/62. Pulse 130 per minute. NECK: Without JVP. RESPIRATION: On ventilator support with 100% FiO2. ABDOMEN: Nondistended. EXTREMITIES: 1+ pitting edema. NEUROLOGICAL: Sedated. LABORATORY DATA: Most recent serum creatinine is up to 1.85, BUN 23, potassium 5.5, bicarb 21, and sodium 131. IMPRESSION: 1. Recurrent acute kidney injury, secondary to hypotension/shock. 2. Hyperkalemia, secondary to above. 3. Hyponatremia, dilutional. 4. Septic shock, maxing out on 3 vasopressors. RECOMMENDATION: Continue attempts at supporting blood pressure. His prognosis appears poor. Evidently, plans are to discuss withdrawal of care with the family today. We will follow. Discussed with RN at bedside. Eduard Kaye MD [facility] /[id number]
--- NOTE | 2020-05-24 14:16 | NUR ---
narrow gauge engineer attended , narrow gauge engineer provided grief support , pastoral comfort . family expressed appropriate grief , hope building and prayer . they expressed jayro and hope in God , good family support . provided education on plan. The family appreciated narrow gauge engineer support and expressed more calm and peace. narrow gauge engineer informed the chaplain Katheryn
[2020-05-24] MEDS ORDERED: SODIUM CHLORIDE FLUSH 10 ML SYR ONE (14:36)
[2020-05-24] MEDS ORDERED: SODIUM BICARBONATE 8.4% 50 ML VIAL ONE (14:36)
[2020-05-24] MEDS ORDERED: EPINEPHRINE HCL SYRINGE ONE (14:36)
[2020-05-24] MEDS ORDERED: ATROPINE SULFATE 0.1 MG/ML 10ML SYR ONE (14:36)
[2020-05-24 18:39] LABS: ABG HCO3 26 mmol/L (22-26); ABG PCO2 60 mmHg (35-45); ABG PH 7.23 (7.35-7.45); ABG PO2 61 mmHg (80-105); ABG TCO2 28
--- NOTE | 2020-05-26 21:39 | Operative Report ---
DATE OF PROCEDURE: 05/20/2020 SURGEON: Ancelmo Martinez MD PREOPERATIVE DIAGNOSIS: Urethral stricture disease and urinary retention. POSTOPERATIVE DIAGNOSIS: Urethral stricture disease and urinary retention. OPERATIVE PROCEDURE PERFORMED: 1. Flexible cystoscopy. 2. Placement of catheter in the bladder. ANESTHESIA: Local. ESTIMATED BLOOD LOSS: Minimal. INDICATIONS: Mr. Johnnie Raines is a 64-year-old gentleman, admitted to the hospital with COVID pneumonia, who is now intubated and has no access to his bladder. He is voiding minimally while intubated by condom catheter. He has a history of prior open SP tube placement and urethral surgery. PROCEDURE IN DETAIL: Flexible cystoscopy was performed at the bedside. The patient was noted to have a normal meatus and distal urethra, but his bulbar urethra was noted to be profoundly narrowed and scarred. A small aperture was seen up in the 11 o'clock position and a wire was safely placed across this and up into what was presumed to be the bladder. Multiple attempts were made to dilate this site, but these were unsuccessful. A 5-Divehi open-ended catheter was then placed over the wire and up into the bladder. The wire was removed in its entirety and the patient was noted to drain 150 mL of blood-tinged urine. Given his present critical status, the catheter was left in situ and no further attempt was made to dilate the urethra. The catheter was then taped to the skin to assure that it was not pulled out accidentally. The patient was in stable condition at the time of transfer back to the nursing. Ancelmo Martinez MD [facility]/MODL /[id number]
--- NOTE | 2020-05-26 22:49 | Consultation ---
DATE OF CONSULTATION: 05/19/2020 REASON FOR CONSULTATION: Urinary retention. HISTORY OF PRESENT ILLNESS: Mr. Johnnie Raines is a 64-year-old gentleman, who was recently admitted to the hospital with COVID pneumonia and difficulty urinating. He has a history of an open suprapubic tube placement in the past as well as urethral surgery at [place] approximately 3 years ago. He is not sure of exactly what was done, but he has had significant difficulty urinating since then. At present, he is straining to void, which causes him to desaturate and interferes with his breathing. Canseco catheter placement is being requested by the nursing staff and his Pulmonary physician. After instilling the urethra with lidocaine jelly, multiple attempts were made to place a 14-Khmer coude tip catheter. The catheter meets significant resistance in the mid bone and could not be negotiated further into the urethra. Given his presence of an open suprapubic tube placement in the past and a prior urethral surgery, a little attempt was made to dilate his urethra bluntly. Attempts will be made for a cystoscopic placement of the suprapubic tube at another time. A condom catheter was therefore returned to the penis and the case was turned back over to the nursing staff. MD RONA Patel/JASMINA /[id number]
== END 2020-05-24 15:00 | disposition expired | DRG 207 ==
LOC: ER 20:29 → ERHOLD 21:18 → IMCU 05-08 00:16 → COVIDICU 05-10 17:30
PROVIDERS: ADMIT Internal Medicine; ATTEND Internal Medicine
PROC: 8E0ZXY6 Isolation (ICD-10-PCS; 2020-05-07)
PROC: XW043E5 Introduction of Remdesivir Anti-infective into Central Vein, Percutaneous Approach, New Technology Group 5 (ICD-10-PCS; 2020-05-08)
PROC: 0BH17EZ Insertion of Endotracheal Airway into Trachea, Via Natural or Artificial Opening (ICD-10-PCS; principal; 2020-05-20)
PROC: 5A1955Z Respiratory Ventilation, Greater than 96 Consecutive Hours (ICD-10-PCS; 2020-05-20)
PROC: 02HV33Z Insertion of Infusion Device into Superior Vena Cava, Percutaneous Approach (ICD-10-PCS; 2020-05-20)
PROC: B548ZZA Ultrasonography of Superior Vena Cava, Guidance (ICD-10-PCS; 2020-05-20)
PROC: 0T9B80Z Drainage of Bladder with Drainage Device, Via Natural or Artificial Opening Endoscopic (ICD-10-PCS; 2020-05-20)
PROC: 0W9930Z Drainage of Right Pleural Cavity with Drainage Device, Percutaneous Approach (ICD-10-PCS; 2020-05-20)
PROC: 3E043XZ Introduction of Vasopressor into Central Vein, Percutaneous Approach (ICD-10-PCS; 2020-05-20)
PROC: 5A12012 Performance of Cardiac Output, Single, Manual (ICD-10-PCS; 2020-05-24)
DX: U07.1 COVID-19 (principal); J12.89 Other viral pneumonia; J96.01 Acute respiratory failure with hypoxia; J15.9 Unspecified bacterial pneumonia; J69.0 Pneumonitis due to inhalation of food and vomit; N17.0 Acute kidney failure with tubular necrosis; A41.9 Sepsis, unspecified organism; B37.1 Pulmonary candidiasis; R65.21 Severe sepsis with septic shock; J80 Acute respiratory distress syndrome; I21.11 ST elevation (STEMI) myocardial infarction involving right coronary artery; K52.1 Toxic gastroenteritis and colitis; N17.9 Acute kidney failure, unspecified; E87.1 Hypo-osmolality and hyponatremia; J93.9 Pneumothorax, unspecified; N35.912 Unspecified bulbous urethral stricture, male; R33.9 Retention of urine, unspecified; Z91.041 Radiographic dye allergy status; E66.9 Obesity, unspecified; Z68.33 Body mass index [BMI] 33.0-33.9, adult; I10 Essential (primary) hypertension; T36.95XA Adverse effect of unspecified systemic antibiotic, initial encounter; J98.2 Interstitial emphysema; D64.9 Anemia, unspecified; N13.9 Obstructive and reflux uropathy, unspecified; D69.6 Thrombocytopenia, unspecified
CPT/HCPCS: 36415; 36600; 70490; 71045; 71250; 74018; 74176; 76770; 80048; 80053; 80061; 80076; 80202; 81001; 82150; 82270; 82550; 82553; 82570; 82607; 82728; 82746; 82805; 82948; 83036; 83540; 83690; 83735; 84100; 84156; 84466; 84484; 85014; 85018; 85025; 85045; 85379; 85384; 85610; 85730; 86022; 87070; 87186; 87205; 87493; 92950; 93005; 93306; 94002; 94003; 99284; C1758; C1769; J0171; J0456; J0696; J1100; J1450; J1644; J1650; J2001; J2060; J2248; J2250; J2370; J3370; J7030; J7042; J7050; J7070; U0002